=== PATIENT | male | born 1940 | race Caucasian/White ===

== ENCOUNTER 2017-05-14 17:19 | Observation (INO) | payer MEDICARE ==
[2017-05-14] MEDS ORDERED: RX INFO: IV CONTRAST WAS GIVEN 1 EACH MISC MISCELLANE PRN (18:35)
--- NOTE | 2017-05-14 18:38 | ED ---
General Adult HPI - General Chief complaint: Nausea/Vomiting/Diarrhea Stated complaint: abdominal pain Time Seen by Provider: 05/14/17 18:21 Source: patient, family Mode of arrival: ambulatory Limitations: no limitations - History of Present Illness Initial comments: Patient is a 76-year-old male with extensive past medical history most significant for prostate cancer for which he began oral chemotherapy yesterday as well as known coronary artery disease for which he underwent a stress echocardiogram yesterday. Patient presents to the ED today for evaluation of lower abdominal pain, nausea, vomiting and constipation. Patient states that yesterday during his stress test he did feel some pressure in his lower abdomen, he thought it was because something was laying on his abdomen. He reports his pain didn't disturb him too much and he did not report it to the facility at that time. She states that he was in his usual state of health after going home, he did take his evening meds which included a new prescription for an oral chemotherapeutic for prostate cancer. Patient reports that throughout the day today he has had a vague pressure in his lower abdomen, he did not have a bowel movement until 6 PM this evening which she reports is unusual for him. He does report that this afternoon around 12:30 PM he was feeling nauseated he had a small episode of nonbloody nonbilious emesis, he felt that if he could vomit he would feel better so he drank a cup of baking soda and water. He reports that he was able to vomit this back up but that only provided minimal relief. He reports that his pain is in the lower abdomen, it is a vague cramping in nature. It does not radiate. Patient reports he's never experienced anything like this before. Patient does have a history of prostate surgery in the past however no other abdominal surgeries. His most recent colonoscopy was 4 years ago and they identified a single polyp at which time they told him he no longer needed to follow up for colonoscopies. Patient denies fevers but reports he feels chilled at the emergency department. He denies chest pain or shortness of breath. He denies any dysuria or difficulty with urination. - Related Data Home Medications Medication Instructions Recorded Confirmed Cholecalciferol [Vitamin D3] 1,000 unit PO DAILY 04/16/16 05/14/17 Enzalutamide [Xtandi] 160 mg PO DIRECTED 04/16/16 05/14/17 Abiraterone Acetate [Zytiga] 1,000 mg PO DAILY@1600 05/14/17 05/14/17 Cyanocobalamin [Vitamin B-12] 500 mcg PO DAILY 05/14/17 05/14/17 Ferrous Sulfate [Feosol] 325 mg PO DAILY 05/14/17 05/14/17 Furosemide [Lasix] 40 mg PO HS 05/14/17 05/14/17 Potassium Chloride [Klor-Con 20] 20 meq PO DAILY 05/14/17 05/14/17 Rivaroxaban [Xarelto] 20 mg PO DAILY@1300 05/14/17 05/14/17 predniSONE 5 mg PO BID 05/14/17 05/14/17 Previous Rx's Medication Instructions Recorded Metoprolol Tartrate [Lopressor] 50 mg PO BID #180 tab 04/20/16 Allergies Allergy/AdvReac Type Severity Reaction Status Date / Time No Known Allergies Allergy Verified 05/14/17 19:18 Review of Systems ROS Statement: Those systems with pertinent positive or pertinent negative responses have been documented in the HPI. ROS Other: All systems not noted in ROS Statement are negative. Constitutional: Reports: chills. Denies: fever Eyes: Denies: vision change ENT: Denies: ear pain, throat pain, epistaxis Respiratory: Denies: cough, dyspnea Cardiovascular: Denies: chest pain, palpitations, dyspnea on exertion, edema Endocrine: Denies: fatigue, heat or cold intolerance Gastrointestinal: Reports: abdominal pain, nausea, vomiting, constipation (did not have a BM this morning, did have a large BM upon arrival to the ED). Denies : diarrhea Genitourinary: Denies: urgency, dysuria, frequency Musculoskeletal: Denies: back pain Skin: Denies: rash, lesions Neurological: Denies: headache, weakness Psychiatric: Denies: anxiety, depression Hematological/Lymphatic: Reports: easy bleeding, easy bruising (on xarelto) Past Medical History Past Medical History: Cancer, Hypertension, Osteoarthritis (OA), Pneumonia, Prostate Disorder Additional Past Medical History / Comment(s): PROSTATE CANCER 2005(HAD SX ANS RADIATION),upper PERMANENT BRIDGE, POLYPS-benign), UTI, STATED HAD PNE VACCINE APRROX 3-4 YEARS AGO. History of Any Multi-Drug Resistant Organisms: None Reported Additional Past Surgical History / Comment(s): PROSTATECTOMY,COLONOSCOPY, RT INGUINAL HERNIA,"BLOOD REMOVED FROM BEHIND RETINA-RT EYE", rt cataract. Past Anesthesia/Blood Transfusion Reactions: No Reported Reaction Past Psychological History: No Psychological Hx Reported Smoking Status: Former smoker Past Alcohol Use History: Rare Past Drug Use History: None Reported - Past Family History Father Family Medical History: Myocardial Infarction ([place]) Mother Family Medical History: Cancer Additional Family Medical History / Comment(s): uterin cancer- at age 86 General Exam Limitations: no limitations General appearance: alert, in no apparent distress Head exam: Present: atraumatic, normocephalic, normal inspection Eye exam: Present: normal appearance, PERRL, EOMI. Absent: scleral icterus, conjunctival injection, periorbital swelling ENT exam: Present: normal exam, mucous membranes moist Neck exam: Present: normal inspection. Absent: tenderness, meningismus, lymphadenopathy Respiratory exam: Present: normal lung sounds bilaterally. Absent: respiratory distress, wheezes, rales, rhonchi, stridor Cardiovascular Exam: Present: regular rate, normal rhythm, normal heart sounds. Absent: systolic murmur, diastolic murmur, rubs, gallop, clicks GI/Abdominal exam: Present: soft, normal bowel sounds. Absent: distended, guarding, rebound, rigid, diminished bowel sounds, hyperactive bowel sounds, hypoactive bowel sounds, organomegaly, mass, pulsatile mass Rectal exam: Present: deferred Extremities exam: Present: normal inspection. Absent: pedal edema Neurological exam: Present: alert, oriented X3, CN II-XII intact Psychiatric exam: Present: normal affect, normal mood Skin exam: Present: warm, dry, intact, normal color. Absent: rash Course Vital Signs 05/14/17 05/14/17 05/14/17 17:29 20:10 21:28 Temperature 96.5 F L 98.7 F Pulse Rate 87 82 87 Respiratory 22 18 16 Rate Blood Pressure 159/79 134/74 143/73 O2 Sat by Pulse 100 98 97 Oximetry - Reevaluation(s) Reevaluation #1: Patient's daughter pulled me aside outside of the room and expressed concern that her father has seemed "off lately" and is saying very off the wall things, she states they have discussed this with his PCP and oncologist. Daughter states this is why they have changed the patient's prostate cancer medication. She also states that he is currently being worked up for dementia. 05/14/17 19:23 Reevaluation #2: Labs and CT imaging were reviewed and discussed with the family and patient. Patient appears to have a left UVJ kidney stone with mild hydronephrosis urinalysis with no glucose site esterase or nitrites however full red and white blood cells as well as bacteria, culture was ordered, IV Rocephin was ordered. Bise the patient and the family that I plan to place the patient in the hospital overnight for evaluation by his urologist. 05/14/17 21:43 05/14/17 21:45 Medical Decision Making - Medical Decision Making Patient was seen and evaluated, history was obtained from the patient and his family at bedside History and physical exam concerning for left lower quadrant abdominal pain, patient is only mildly tender on evaluation it seems to be distractible History is complicated by a recent stress echocardiogram yesterday and initiation of new chemotherapeutic drug yesterday as well Labs and CT scans were ordered EKG with sinus rhythm, rate 75 normal intervals, noted to have occasional PAC. Labs were reviewed, significant for a mildly elevated lactic acid of 3.0 Computed tomography scan reveals a distal UVJ stone with hydronephrosis Urinalysis with no definitive urinary tract infection however there is significant but cells as well as bacteria noted, a urine culture was obtained IV Rocephin was ordered Given the patient's multiple medical comorbidities will plan to admit the patient for observation and further evaluation by his urologist Dr Akhtar Patient care was discussed with Dr. Gardner who accepts the patient to observation for possible UTI and UVJ stone with a consult to urology. Orders were placed - Lab Data Result diagrams: 05/14/17 19:20 05/14/17 19:20 Lab Results 05/14/17 05/14/17 05/14/17 Range/Units 19:20 19:20 19:20 WBC 8.4 (3.8-10.6) k/uL RBC 4.44 (4.30-5.90) m/uL Hgb 14.3 (13.0-17.5) gm/dL Hct 41.1 (39.0-53.0) % MCV 92.5 (80.0-100.0) fL MCH 32.2 (25.0-35.0) pg MCHC 34.8 (31.0-37.0) g/dL RDW 12.7 (11.5-15.5) % Plt Count 204 (150-450) k/uL Neutrophils % 90 % Lymphocytes % 5 % Monocytes % 5 % Eosinophils % 0 % Basophils % 0 % Neutrophils # 7.5 (1.3-7.7) k/uL Lymphocytes # 0.4 L (1.0-4.8) k/uL Monocytes # 0.4 (0-1.0) k/uL Eosinophils # 0.0 (0-0.7) k/uL Basophils # 0.0 (0-0.2) k/uL PT (9.0-12.0) sec INR (<1.2) APTT (22.0-30.0) sec Sodium 144 (137-145) mmol/L Potassium 3.8 (3.5-5.1) mmol/L Chloride 109 H (98-107) mmol/L Carbon Dioxide 23 (22-30) mmol/L Anion Gap 12 mmol/L BUN 28 H (9-20) mg/dL Creatinine 1.10 (0.66-1.25) mg/dL Est GFR (MDRD) Af Amer >60 (>60 ml/min/1.73 sqM) Est GFR (MDRD) Non-Af >60 (>60 ml/min/1.73 sqM) Glucose 160 H (74-99) mg/dL POC Glucose (mg/dL) (75-99) mg/dL POC Glu Weld Inspector ID Plasma Lactic Acid Barber 3.0 H* (0.7-2.0) mmol/L Calcium 9.3 (8.4-10.2) mg/dL Troponin I (0.000-0.034) ng/mL Urine Color Urine Appearance (Clear) Urine pH (5.0-8.0) Ur Specific [place] (1.001-1.035) Urine Protein (Negative) Urine Glucose (UA) (Negative) Urine Ketones (Negative) Urine Blood (Negative) Urine Nitrite (Negative) Urine Bilirubin (Negative) Urine Urobilinogen (<2.0) mg/dL Ur Leukocyte Esterase (Negative) Urine RBC (0-5) /hpf Urine WBC (0-5) /hpf Ur Squamous Epith Cells (0-4) /hpf Urine Bacteria (None) /hpf Urine Mucus (None) /hpf 05/14/17 05/14/17 05/14/17 Range/Units 19:20 19:20 19:20 WBC (3.8-10.6) k/uL RBC (4.30-5.90) m/uL Hgb (13.0-17.5) gm/dL Hct (39.0-53.0) % MCV (80.0-100.0) fL MCH (25.0-35.0) pg MCHC (31.0-37.0) g/dL RDW (11.5-15.5) % Plt Count (150-450) k/uL Neutrophils % % Lymphocytes % % Monocytes % % Eosinophils % % Basophils % % Neutrophils # (1.3-7.7) k/uL Lymphocytes # (1.0-4.8) k/uL Monocytes # (0-1.0) k/uL Eosinophils # (0-0.7) k/uL Basophils # (0-0.2) k/uL PT 10.6 (9.0-12.0) sec INR 1.0 (<1.2) APTT 21.8 L (22.0-30.0) sec Sodium (137-145) mmol/L Potassium (3.5-5.1) mmol/L Chloride (98-107) mmol/L Carbon Dioxide (22-30) mmol/L Anion Gap mmol/L BUN (9-20) mg/dL Creatinine (0.66-1.25) mg/dL Est GFR (MDRD) Af Amer (>60 ml/min/1.73 sqM) Est GFR (MDRD) Non-Af (>60 ml/min/1.73 sqM) Glucose (74-99) mg/dL POC Glucose (mg/dL) 151 H (75-99) mg/dL POC Glu Weld Inspector ID Alyssa Markham Plasma Lactic Acid Barber (0.7-2.0) mmol/L Calcium (8.4-10.2) mg/dL Troponin I <0.012 (0.000-0.034) ng/mL Urine Color Urine Appearance (Clear) Urine pH (5.0-8.0) Ur Specific [place] (1.001-1.035) Urine Protein (Negative) Urine Glucose (UA) (Negative) Urine Ketones (Negative) Urine Blood (Negative) Urine Nitrite (Negative) Urine Bilirubin (Negative) Urine Urobilinogen (<2.0) mg/dL Ur Leukocyte Esterase (Negative) Urine RBC (0-5) /hpf Urine WBC (0-5) /hpf Ur Squamous Epith Cells (0-4) /hpf Urine Bacteria (None) /hpf Urine Mucus (None) /hpf 05/14/17 Range/Units 19:20 WBC (3.8-10.6) k/uL RBC (4.30-5.90) m/uL Hgb (13.0-17.5) gm/dL Hct (39.0-53.0) % MCV (80.0-100.0) fL MCH (25.0-35.0) pg MCHC (31.0-37.0) g/dL RDW (11.5-15.5) % Plt Count (150-450) k/uL Neutrophils % % Lymphocytes % % Monocytes % % Eosinophils % % Basophils % % Neutrophils # (1.3-7.7) k/uL Lymphocytes # (1.0-4.8) k/uL Monocytes # (0-1.0) k/uL Eosinophils # (0-0.7) k/uL Basophils # (0-0.2) k/uL PT (9.0-12.0) sec INR (<1.2) APTT (22.0-30.0) sec Sodium (137-145) mmol/L Potassium (3.5-5.1) mmol/L Chloride (98-107) mmol/L Carbon Dioxide (22-30) mmol/L Anion Gap mmol/L BUN (9-20) mg/dL Creatinine (0.66-1.25) mg/dL Est GFR (MDRD) Af Amer (>60 ml/min/1.73 sqM) Est GFR (MDRD) Non-Af (>60 ml/min/1.73 sqM) Glucose (74-99) mg/dL POC Glucose (mg/dL) (75-99) mg/dL POC Glu Weld Inspector ID Plasma Lactic Acid Barber (0.7-2.0) mmol/L Calcium (8.4-10.2) mg/dL Troponin I (0.000-0.034) ng/mL Urine Color Light Red Urine Appearance Cloudy (Clear) Urine pH 6.5 (5.0-8.0) Ur Specific [place] 1.021 (1.001-1.035) Urine Protein 1+ H (Negative) Urine Glucose (UA) Negative (Negative) Urine Ketones 1+ H (Negative) Urine Blood Large H (Negative) Urine Nitrite Negative (Negative) Urine Bilirubin Negative (Negative) Urine Urobilinogen <2.0 (<2.0) mg/dL Ur Leukocyte Esterase Negative (Negative) Urine RBC >182 H (0-5) /hpf Urine WBC 31 H (0-5) /hpf Ur Squamous Epith Cells 1 (0-4) /hpf Urine Bacteria Occasional H (None) /hpf Urine Mucus Moderate H (None) /hpf Disposition Clinical Impression: Nephrolithiasis, Hydronephrosis, Lactic acid acidosis, UTI (urinary tract infection) Disposition: ADMITTED IP TO THIS [facility] Condition: Good Referrals: Annamaria Jimenez MD [Primary Care Provider] - 1-2 days Time of Disposition: 22:06
[2017-05-14 19:24] LABS: Glucose,Whole Blood 151 mg/dL (75-99)
[2017-05-14 19:52] LABS: Basophils % (A) 0 %; CH 32.3; Eosinophils % (A) 0 %; HCT 41.1 % (39.0-53.0); HDW 2.68; HGB 14.3 gm/dL (13.0-17.5); Luc # (Auto) 0.04; Luc % (Auto) 1; Lymphocytes # (A) 0.4 k/uL (1.0-4.8); Lymphocytes % (A) 5 %; MCH 32.2 pg (25.0-35.0); MCHC 34.8 g/dL (31.0-37.0); MCV 92.5 fL (80.0-100.0); Mean Platelet Volume 6.8; Monocytes # (A) 0.4 k/uL (0-1.0); Monocytes % (A) 5 %; Neutrophils # (A) 7.5 k/uL (1.3-7.7); Neutrophils % (A) 90 %; RBC 4.44 m/uL (4.30-5.90); RDW 12.7 % (11.5-15.5); WBC 8.4 k/uL (3.8-10.6); WBC (Perox) 8.29
[2017-05-14 19:59] LABS: Appearance,Urine Cloudy (Clear); Bacteria,Urine Occasional /hpf; Bilirubin,Urine Negative (Negative); Glucose,Urine (UA) Negative (Negative); Ketones,Urine 1+ (Negative); Leukocyte Esterase,Urine Negative (Negative); Mucus,Urine Moderate /hpf; Nitrite,Urine Negative (Negative); PH, Urine 6.5 (5.0-8.0); Particle Count 9736; Protein,Urine 1+ (Negative); RBC,Urine >182 /hpf (0-5); Specific Gravity,Urine 1.021 (1.001-1.035); Squamous Epithelial Cell,Urine 1 /hpf (0-4); UA Billing (MACRO vs. MICRO) MICRO; Urobilinogen,Urine <2.0 mg/dL (<2.0); WBC,Urine 31 /hpf (0-5)
[2017-05-14 20:08] LABS: Anion Gap 12 mmol/L; Blood Urea Nitrogen 28 mg/dL (9-20); Calcium 9.3 mg/dL (8.4-10.2); Carbon Dioxide 23 mmol/L (22-30); Chloride 109 mmol/L (98-107); Glucose 160 mg/dL (74-99); Non-African American GFR(MDRD) >60 (>60 ml/min/1.73 sqM); Potassium 3.8 mmol/L (3.5-5.1); Sodium 144 mmol/L (137-145)
[2017-05-14 20:14] LABS: Prothrombin Time 10.6 sec (9.0-12.0)
[2017-05-14 20:17] LABS: Partial Thromboplastin Time 21.8 sec (22.0-30.0)
[2017-05-14] MEDS ORDERED: SODIUM CHLORIDE 0.9% 1,000 ML IV ONE (20:30)
--- NOTE | 2017-05-14 21:15 | CT ---
EXAMINATION TYPE: CT abdomen pelvis w con DATE OF EXAM: 05/14/2017 COMPARISON: HISTORY: Abdominal pain CT DLP: mGycm Automated exposure control for dose reduction was used. TECHNIQUE: Helical acquisition of images was performed from the lung bases through the pelvis. CONTRAST: Omnipaque 100 mL. FINDINGS: There is mild subsegmental atelectasis at the lung bases. Liver spleen appear normal. There is a small calcified gallstone. Bile ducts are not dilated. There is mild left-sided hydronephrosis and hydroureter. There is probably a small stone in the dista l left ureter at the bladder. There is a 4 mm calcification in the posterior left kidney. There is a 1 cm cortical cyst on the lower pole left kidney. There is a 2 cm cortical cyst on the lower pole rig ht kidney. There is a 4 cm rounded mass involving the right adrenal gland. This has intermediate dens ity. There is probably some peripheral enhancement. There is no retroperitoneal adenopathy. There is no ascites. Bladder distends smoothly. I see no pelv ic mass. There is no intestinal wall thickening. There are no dilated loops. There are surgical clips in the pelvis. I see no bony destructive process. There is narrowing of L4-5 disc space. IMPRESSION: THERE IS MILD LEFT-SIDED HYDRONEPHROSIS AND HYDROURETER. HYDROURETER IS NEW COMPARED TO OLD EXAM AND I SUSPECT A SMALL OBSTRUCTING CALCULUS AT THE LEFT URETEROVESICAL JUNCTION. SMALL LEFT RENAL CALCULUS . RENAL CORTICAL CYSTS. SMALL CALCIFIED GALLSTONE. 4 CM RIGHT ADRENAL MASS IS NOT SIGNIFICANTLY DIFFERENT THAN OLD EXAM AND SUGGESTS A BENIGN ETIOLOGY.
[2017-05-14] MEDS ORDERED: ACETAMINOPHEN TAB 325 MG TAB PO PRN (22:00)
[2017-05-14] MEDS ORDERED: KETOROLAC 30 MG/ML 1 ML VIAL IVP PRN (22:00)
[2017-05-14] MEDS ORDERED: MORPHINE SULFATE 4 MG/ML SYRINGE IV PRN (22:00)
[2017-05-14] MEDS ORDERED: NALOXONE 0.4 MG/ML 1 ML VIAL IV PRN (22:00)
[2017-05-14] MEDS ORDERED: SODIUM CHLORIDE 0.9% 1,000 ML IV SCH (22:00)
[2017-05-14] MEDS ORDERED: HYDROcodone/APAP 5-325MG 1 EACH TAB PO PRN (22:00)
[2017-05-15 08:57] VITALS: RESP 16
--- NOTE | 2017-05-15 11:28 | P.GSCN ---
History of Present Illness Consult date: 05/15/17 Reason for Consult: Left ureteral calculus History of present illness: The patient developed left lower abdominal pain and nausea yesterday afternoon. He had an episode of self-induced nausea but says that he continued to have discomfort. The pain was associated with the urge to have a bowel movement but he had no urinary frequency, urgency or hematuria. His pain worsened and he presented to the emergency room late in the afternoon where he was evaluated and noted to have microscopic hematuria. Computed tomography scan of the abdomen and pelvis identified a 2 mm distal left ureteral calculus which appeared to be located at the ureteral meatus. There was no significant hydronephrosis. The patient was admitted to the hospitalist and started on ceftriaxone. He says that he has actually had no pain since he was in the emergency room late in the evening. He has not been straining his urine and is unaware if he has passed the stone. He has no previous history of urolithiasis , urinary tract infection or gross hematuria. The patient has a history of prostate cancer and has been followed by Dr. Akhtar. He underwent radical prostatectomy in 1994 which was eventually followed by adjuvant radiation therapy due to a rising PSA. He apparently developed a PSA recurrence which was initially treated with bicalutamide and then Lupron. He was started on Xtandi in 09/2015 and apparently had an initial fall in his PSA but the PSA began rising this year. He was recently seen and was going to be switched to Zytega starting yesterday but he has not yet begun this medication. He is scheduled to see Dr Akhtar in 2 weeks. Review of Systems - Constitutional Denies chills, Denies fever - Cardiovascular Denies chest pain, Denies palpitations - Respiratory Denies cough, Denies wheezing - Gastrointestinal Denies abdominal pain, Denies nausea - Genitourinary Denies dysuria, Denies hematuria, Denies urinary frequency Past Medical History Past Medical History: Atrial Fibrillation, Cancer (Prostate cancer-castrate resistant), Hypertension, Osteoarthritis (OA), Pneumonia, Prostate Disorder Additional Past Medical History / Comment(s): PROSTATE CANCER 2005(HAD SX ANS RADIATION),upper PERMANENT BRIDGE, POLYPS-benign), UTI, STATED HAD PNE VACCINE APRROX 3-4 YEARS AGO. History of Any Multi-Drug Resistant Organisms: None Reported Additional Past Surgical History / Comment(s): PROSTATECTOMY,COLONOSCOPY, RT INGUINAL HERNIA,"BLOOD REMOVED FROM BEHIND RETINA-RT EYE", rt cataract. Past Anesthesia/Blood Transfusion Reactions: No Reported Reaction Past Psychological History: No Psychological Hx Reported Smoking Status: Former smoker Past Alcohol Use History: Rare Additional Past Alcohol Use History / Comment(s): smoked off and on x 20 years, quit in the Past Drug Use History: None Reported - Past Family History Father Family Medical History: Myocardial Infarction ([place]) Mother Family Medical History: Cancer Additional Family Medical History / Comment(s): uterin cancer- at age 86 Medications and Allergies Home Medications Medication Instructions Recorded Confirmed Type Cholecalciferol [Vitamin D3] 1,000 unit PO DAILY 04/16/16 05/14/17 History Abiraterone Acetate [Zytiga] 1,000 mg PO DAILY@1600 05/14/17 05/14/17 History Cyanocobalamin [Vitamin B-12] 500 mcg PO DAILY 05/14/17 05/14/17 History Ferrous Sulfate [Feosol] 325 mg PO DAILY 05/14/17 05/14/17 History Furosemide [Lasix] 40 mg PO HS 05/14/17 05/14/17 History Potassium Chloride [Klor-Con 20] 20 meq PO DAILY 05/14/17 05/14/17 History Rivaroxaban [Xarelto] 20 mg PO DAILY@1300 05/14/17 05/14/17 History predniSONE 5 mg PO BID 05/14/17 05/14/17 History Allergies Allergy/AdvReac Type Severity Reaction Status Date / Time No Known Allergies Allergy Verified 05/14/17 23:07 Surgical - Exam Vital Signs Temp Pulse Resp BP Pulse Ox 96.5 F L 87 22 159/79 100 05/14/17 17:29 05/14/17 17:29 05/14/17 17:29 05/14/17 17:29 05/14/17 17:29 - General well developed, no distress, no pain - Respiratory normal respiratory effort - Abdomen Abdomen: soft, non tender, no organomegaly - Genitourinary normal penis with no external lesions, testicles present, testicles non-tender - Psychiatric oriented to time, speech is normal, memory intact Results - Labs 05/14/17 19:20 05/14/17 19:20 Abnormal Lab Results - Last 24 Hours (Table) 05/14/17 05/14/17 05/14/17 Range/Units 19:20 19:20 19:20 Lymphocytes # 0.4 L (1.0-4.8) k/uL APTT (22.0-30.0) sec Chloride 109 H (98-107) mmol/L BUN 28 H (9-20) mg/dL Glucose 160 H (74-99) mg/dL POC Glucose (mg/dL) (75-99) mg/dL Plasma Lactic Acid Barber 3.0 H* (0.7-2.0) mmol/L Urine Protein (Negative) Urine Ketones (Negative) Urine Blood (Negative) Urine RBC (0-5) /hpf Urine WBC (0-5) /hpf Urine Bacteria (None) /hpf Urine Mucus (None) /hpf 05/14/17 05/14/17 05/14/17 Range/Units 19:20 19:20 19:20 Lymphocytes # (1.0-4.8) k/uL APTT 21.8 L (22.0-30.0) sec Chloride (98-107) mmol/L BUN (9-20) mg/dL Glucose (74-99) mg/dL POC Glucose (mg/dL) 151 H (75-99) mg/dL Plasma Lactic Acid Barber (0.7-2.0) mmol/L Urine Protein 1+ H (Negative) Urine Ketones 1+ H (Negative) Urine Blood Large H (Negative) Urine RBC >182 H (0-5) /hpf Urine WBC 31 H (0-5) /hpf Urine Bacteria Occasional H (None) /hpf Urine Mucus Moderate H (None) /hpf Microbiology - Last 24 Hours (Table) 05/14/17 21:39 Urine Culture - Preliminary Urine,Voided Diabetes panel 05/14/17 Range/Units 19:20 Sodium 144 (137-145) mmol/L Potassium 3.8 (3.5-5.1) mmol/L Chloride 109 H (98-107) mmol/L Carbon Dioxide 23 (22-30) mmol/L BUN 28 H (9-20) mg/dL Creatinine 1.10 (0.66-1.25) mg/dL Glucose 160 H (74-99) mg/dL Calcium 9.3 (8.4-10.2) mg/dL Calcium panel 05/14/17 Range/Units 19:20 Calcium 9.3 (8.4-10.2) mg/dL Pituitary panel 05/14/17 Range/Units 19:20 Sodium 144 (137-145) mmol/L Potassium 3.8 (3.5-5.1) mmol/L Chloride 109 H (98-107) mmol/L Carbon Dioxide 23 (22-30) mmol/L BUN 28 H (9-20) mg/dL Creatinine 1.10 (0.66-1.25) mg/dL Glucose 160 H (74-99) mg/dL Calcium 9.3 (8.4-10.2) mg/dL Adrenal panel 05/14/17 Range/Units 19:20 Sodium 144 (137-145) mmol/L Potassium 3.8 (3.5-5.1) mmol/L Chloride 109 H (98-107) mmol/L Carbon Dioxide 23 (22-30) mmol/L BUN 28 H (9-20) mg/dL Creatinine 1.10 (0.66-1.25) mg/dL Glucose 160 H (74-99) mg/dL Calcium 9.3 (8.4-10.2) mg/dL Assessment and Plan (1) Ureteral calculus, left Narrative/Plan: I personally reviewed the patient's computed tomography scan. He had a 2 mm calculus at the left ureteral meatus with minimal hydronephrosis. He has had no pain since late yesterday evening and it is likely the he has already passed the stone. He has no evidence of urinary tract infection and there is no need to continue him on antibiotics. He has no previous history of urolithiasis and no other calculi were noted in the kidneys. He has a history of castrate resistant prostate cancer and should follow up with Dr. Akhtar as scheduled in 2 weeks. Status: Acute
[2017-05-15 15:50] VITALS: BP 119/80; PULSE 69; TEMP 98.2
--- NOTE | 2017-05-15 16:06 | P.HPIM ---
History of Present Illness H&P Date: 05/15/17 Patient is a 76-year-old male with extensive past medical history most significant for prostate cancer for which he began oral chemotherapy yesterday as well as known coronary artery disease for which he underwent a stress echocardiogram yesterday. Patient presents to the ED today for evaluation of lower abdominal pain, nausea, vomiting and constipation. Patient states that yesterday during his stress test he did feel some pressure in his lower abdomen, he thought it was because something was laying on his abdomen. He reports his pain didn't disturb him too much and he did not report it to the facility at that time. Patient took his evening medications which included a new prescription for an oral chemotherapeutic for prostate cancer. Patient reports that throughout the day today he has had a vague pressure in his lower abdomen, he did not have a bowel movement until 6 PM this evening which she reports is unusual for him. He does report that this afternoon around 12:30 PM he was feeling nauseated he had a small episode vomiting. He reports that his pain is in the lower abdomen, it is a vague cramping in nature. It does not radiate. Patient reports he's never experienced anything like this before. Patient does have a history of prostate surgery in the past however no other abdominal surgeries. His most recent colonoscopy was 4 years ago and they identified a single polyp at which time they told him he no longer needed to follow up for colonoscopies. Patient denies fevers but reports he feels chilled at the emergency department. He denies chest pain or shortness of breath. He denies any dysuria or difficulty with urination. Past Medical History Past Medical History: Atrial Fibrillation, Cancer (Prostate cancer-castrate resistant), Hypertension, Osteoarthritis (OA), Pneumonia, Prostate Disorder Additional Past Medical History / Comment(s): PROSTATE CANCER 2005(HAD SX ANS RADIATION),upper PERMANENT BRIDGE, POLYPS-benign), UTI, STATED HAD PNE VACCINE APRROX 3-4 YEARS AGO. History of Any Multi-Drug Resistant Organisms: None Reported Additional Past Surgical History / Comment(s): PROSTATECTOMY,COLONOSCOPY, RT INGUINAL HERNIA,"BLOOD REMOVED FROM BEHIND RETINA-RT EYE", rt cataract. Past Anesthesia/Blood Transfusion Reactions: No Reported Reaction Past Psychological History: No Psychological Hx Reported Smoking Status: Former smoker Past Alcohol Use History: Rare Additional Past Alcohol Use History / Comment(s): smoked off and on x 20 years, quit in the Past Drug Use History: None Reported - Past Family History Father Family Medical History: Myocardial Infarction ([place]) Mother Family Medical History: Cancer Additional Family Medical History / Comment(s): uterin cancer- at age 86 Medications and Allergies Home Medications Medication Instructions Recorded Confirmed Type Cholecalciferol [Vitamin D3] 1,000 unit PO DAILY 04/16/16 05/14/17 History Abiraterone Acetate [Zytiga] 1,000 mg PO DAILY@1600 05/14/17 05/14/17 History Cyanocobalamin [Vitamin B-12] 500 mcg PO DAILY 05/14/17 05/14/17 History Ferrous Sulfate [Feosol] 325 mg PO DAILY 05/14/17 05/14/17 History Furosemide [Lasix] 40 mg PO HS 05/14/17 05/14/17 History Potassium Chloride [Klor-Con 20] 20 meq PO DAILY 05/14/17 05/14/17 History Rivaroxaban [Xarelto] 20 mg PO DAILY@1300 05/14/17 05/14/17 History predniSONE 5 mg PO BID 05/14/17 05/14/17 History Allergies Allergy/AdvReac Type Severity Reaction Status Date / Time No Known Allergies Allergy Verified 05/14/17 23:07 Physical Exam Vitals: Vital Signs Temp Pulse Pulse Resp BP BP Pulse Ox 05/15/17 15:49 98.2 F 69 16 119/80 96 05/15/17 08:00 98.3 F 70 16 119/75 97 05/15/17 04:00 98.4 F 63 18 151/76 99 05/15/17 03:31 18 05/14/17 23:11 18 05/14/17 22:56 98.3 F 84 18 139/76 99 05/14/17 22:36 98.4 F 86 16 136/68 99 05/14/17 21:28 98.7 F 87 16 143/73 97 05/14/17 20:10 82 18 134/74 98 05/14/17 19:30 87 18 136/84 99 05/14/17 18:30 80 16 132/78 99 05/14/17 17:29 96.5 F L 87 22 159/79 100 Intake and Output 05/15/17 05/15/17 05/15/17 06:59 14:59 22:59 Intake Total 700 716 Balance 700 716 Intake: IV 500 480 Sodium Chloride 0.9% 1, 500 480 000 ml @ 75 mls/hr IV . [id number] ROBERT Rx#:[id number] Oral 200 236 Other: Voiding Method Toilet Toilet # Voids 3 2 In general patient is alert and oriented 3 in no apparent distress HEENT head normocephalic and atraumatic Neck is supple no JVD no goiter no lymphadenopathy Chest exam reveals a few scattered crackles no wheezing Cardiac exam reveals regular heart sounds S1 and S2 no gallops no murmurs Abdomen is soft nontender no organomegaly with normal bowel sounds Extremity exam reveals no edema no cyanosis or clubbing Results CBC & Chem 7: 05/14/17 19:20 05/14/17 19:20 Labs: Abnormal Lab Results - Last 24 Hours (Table) 05/14/17 05/14/17 05/14/17 Range/Units 19:20 19:20 19:20 Lymphocytes # 0.4 L (1.0-4.8) k/uL APTT (22.0-30.0) sec Chloride 109 H (98-107) mmol/L BUN 28 H (9-20) mg/dL Glucose 160 H (74-99) mg/dL POC Glucose (mg/dL) (75-99) mg/dL Plasma Lactic Acid Barber 3.0 H* (0.7-2.0) mmol/L Urine Protein (Negative) Urine Ketones (Negative) Urine Blood (Negative) Urine RBC (0-5) /hpf Urine WBC (0-5) /hpf Urine Bacteria (None) /hpf Urine Mucus (None) /hpf 05/14/17 05/14/17 05/14/17 Range/Units 19:20 19:20 19:20 Lymphocytes # (1.0-4.8) k/uL APTT 21.8 L (22.0-30.0) sec Chloride (98-107) mmol/L BUN (9-20) mg/dL Glucose (74-99) mg/dL POC Glucose (mg/dL) 151 H (75-99) mg/dL Plasma Lactic Acid Barber (0.7-2.0) mmol/L Urine Protein 1+ H (Negative) Urine Ketones 1+ H (Negative) Urine Blood Large H (Negative) Urine RBC >182 H (0-5) /hpf Urine WBC 31 H (0-5) /hpf Urine Bacteria Occasional H (None) /hpf Urine Mucus Moderate H (None) /hpf Microbiology - Last 24 Hours (Table) 05/14/17 21:39 Urine Culture - Preliminary Urine,Voided Thrombosis Risk Factor Assmnt - Choose All That Apply Any of the Below Risk Factors Present?: Yes Each Factor Represents 1 point: Obesity (BMI >25), Swollen legs (current) Other Risk Factors: Yes Each Risk Factor Represents 2 Points: Age 61-74 years Other congenital or acquired thrombophilia - If yes, enter type in comment: No Thrombosis Risk Factor Assessment Total Risk Factor Score: 4 Thrombosis Risk Factor Assessment Level: Moderate Risk Assessment and Plan Plan: #1 abdominal pain with nausea and vomiting #2 evidence of 2 mm kidney stone on computed tomography scan #3 underlying history of prostate cancer recently started on new prescription for oral chemotherapy for prostate cancer #4 underlying history of coronary artery disease At this time patient is admitted for 24-hour observation urology consultation was requested in that regard to kidney stone and abdominal pain Will follow closely for medical management.
--- NOTE | 2017-05-15 16:11 | P.DS ---
Providers Date of admission: 05/14/17 22:00 Expected date of discharge: 05/15/17 Attending physician: Migdalia Gardner Consults: 05/14/17 22:02 Consult Physician Routine Consulting Provider: Robert Akhtar Consult Reason/Comments: left UVJ stone, hydro Do you want consulting provider notified?: Yes, Notify in am Primary care physician: Annamaria Jimenez Hospital Course: Diagnoses on discharge: #1 abdominal pain with nausea and vomiting #2 evidence of 2 mm kidney stone on computed tomography scan #3 underlying history of prostate cancer recently started on new prescription for oral chemotherapy for prostate cancer #4 underlying history of coronary artery disease Hospital course: Patient is a 76-year-old male with extensive past medical history most significant for prostate cancer for which he began oral chemotherapy yesterday as well as known coronary artery disease for which he underwent a stress echocardiogram yesterday. Patient presents to the ED today for evaluation of lower abdominal pain, nausea, vomiting and constipation. Patient states that yesterday during his stress test he did feel some pressure in his lower abdomen, he thought it was because something was laying on his abdomen. He reports his pain didn't disturb him too much and he did not report it to the facility at that time. Patient took his evening medications which included a new prescription for an oral chemotherapeutic for prostate cancer. Patient reports that throughout the day today he has had a vague pressure in his lower abdomen, he did not have a bowel movement until 6 PM this evening which she reports is unusual for him. He does report that this afternoon around 12:30 PM he was feeling nauseated he had a small episode vomiting. He reports that his pain is in the lower abdomen, it is a vague cramping in nature. It does not radiate. Patient reports he's never experienced anything like this before. Patient does have a history of prostate surgery in the past however no other abdominal surgeries. His most recent colonoscopy was 4 years ago and they identified a single polyp at which time they told him he no longer needed to follow up for colonoscopies. Patient denies fevers but reports he feels chilled at the emergency department. He denies chest pain or shortness of breath. He denies any dysuria or difficulty with urination. Patient pain resolved upon presentation to the floor he did not have any further recurrence of his abdominal pain Was evaluated by Dr. Garcia urologist, no intervention was recommended at this time there was no evidence of urinary tract infection, patient had evidence of a 2 mm urethral stone without significant hydronephrosis, no intervention was recommended. Patient was stable and pain free he was discharged home on 05/15/2017 He will follow-up with his primary care physician Dr. phan within 1 week he will also follow with Dr. Akhtar his urologist in the next 2 weeks Patient Condition at Discharge: Good Plan - Discharge Summary New Discharge Prescriptions: Continue Cholecalciferol [Vitamin D3] 1,000 unit PO DAILY Metoprolol Tartrate [Lopressor] 50 mg PO BID #180 tab Cyanocobalamin [Vitamin B-12] 500 mcg PO DAILY predniSONE 5 mg PO BID Furosemide [Lasix] 40 mg PO HS Ferrous Sulfate [Iron (65 MG Elemental)] 325 mg PO DAILY Abiraterone Acetate [Zytiga] 1,000 mg PO DAILY@1600 Potassium Chloride [Klor-Con 20] 20 meq PO DAILY Rivaroxaban [Xarelto] 20 mg PO DAILY@1300 Discharge Medication List Cholecalciferol [Vitamin D3] 1,000 unit PO DAILY 04/16/16 [History] Metoprolol Tartrate [Lopressor] 50 mg PO BID #180 tab 04/20/16 [Rx] Abiraterone Acetate [Zytiga] 1,000 mg PO DAILY@1600 05/14/17 [History] Cyanocobalamin [Vitamin B-12] 500 mcg PO DAILY 05/14/17 [History] Ferrous Sulfate [Iron (65 MG Elemental)] 325 mg PO DAILY 05/14/17 [History] Furosemide [Lasix] 40 mg PO HS 05/14/17 [History] Potassium Chloride [Klor-Con 20] 20 meq PO DAILY 05/14/17 [History] Rivaroxaban [Xarelto] 20 mg PO DAILY@1300 05/14/17 [History] predniSONE 5 mg PO BID 05/14/17 [History] Follow up Appointment(s)/Referral(s): Annamaria Jimenez MD [Primary Care Provider] - 1-2 days
== END 2017-05-15 16:30 | disposition home or self-care (01) ==
LOC: EC 17:19 → 3OBS 22:00
PROVIDERS: ADMIT Internal Medicine; ATTEND Internal Medicine
DX: N13.2 Hydronephrosis with renal and ureteral calculous obstruction (principal); C61 Malignant neoplasm of prostate; I25.10 Atherosclerotic heart disease of native coronary artery without angina pectoris; I10 Essential (primary) hypertension; Z79.01 Long term (current) use of anticoagulants; Z79.899 Other long term (current) drug therapy; Z79.52 Long term (current) use of systemic steroids; Z87.891 Personal history of nicotine dependence; Z85.46 Personal history of malignant neoplasm of prostate; I48.91 Unspecified atrial fibrillation; Z92.3 Personal history of irradiation
CPT/HCPCS: 96361 ×4; 96365; 99285; 36415; 93005; 80048; 83605 ×2; 84484; 85025; 85610; 85730; 81001; 87086; 74177; G0378 ×2; J0696; Q9967

== ENCOUNTER 2017-07-17 19:43 | Inpatient (IN) | payer MEDICARE ==
[2017-07-17] MEDS ORDERED: SODIUM CHLORIDE 0.9% 1,000 ML IV STA (19:57)
--- NOTE | 2017-07-17 20:12 | ED ---
General Adult HPI - General Stated complaint: Altered Mental Status Time Seen by Provider: 07/17/17 19:46 Source: patient, family, RN notes reviewed - History of Present Illness Initial comments: 76-year-old male transferred from [facility] for evaluation of altered mental status, aggression agitation and hallucinations. According to the patient's family member he has been hallucinating over the past week. Today he became quite agitated. He was aggressive towards his daughter. Patient is alert and oriented, he has no complaints. Denies current hallucinations. According to EMS during transport the patient was hallucinating throughout. There was no workup performed prior to transfer. Patient's primary care physician wanted the patient evaluated at this hospital. According to the patient's daughter he does have possible early dementia although no formal diagnosis has been made. - Related Data Home Medications Medication Instructions Recorded Confirmed Cholecalciferol [Vitamin D3] 2,000 unit PO DAILY 04/16/16 07/17/17 Ferrous Sulfate [Iron (65 MG 325 mg PO DAILY 05/14/17 07/17/17 Elemental)] Furosemide [Lasix] 40 mg PO DAILY 05/14/17 07/17/17 Potassium Chloride [Klor-Con 20] 20 meq PO DAILY 05/14/17 07/17/17 Rivaroxaban [Xarelto] 20 mg PO W/SUPPER 05/14/17 07/17/17 predniSONE 5 mg PO BID 05/14/17 07/17/17 Abiraterone Acetate [Zytiga] 1,000 mg PO DAILY 07/17/17 07/17/17 Calcium Carbonate [Calcium] 600 mg PO DAILY 07/17/17 07/17/17 Denosumab [Prolia] 1 dose INJ Q180D 07/17/17 07/17/17 Isosorbide Mononitrate ER [Imdur] 15 mg PO DAILY 07/17/17 07/17/17 Lisinopril [Zestril] 10 mg PO DAILY 07/17/17 07/17/17 Lupron Injection 1 dose INJ Q180D 07/17/17 07/17/17 Nitroglycerin Sl Tabs [Nitrostat] 0.4 mg SUBLINGUAL Q5M PRN 07/17/17 07/17/17 Polyethylene Glycol 3350 [Miralax] 17 gm PO DAILY 10/14/17 10/14/17 Previous Rx's Medication Instructions Recorded Metoprolol Tartrate [Lopressor] 50 mg PO BID #180 tab 04/20/16 Allergies Allergy/AdvReac Type Severity Reaction Status Date / Time No Known Allergies Allergy Verified 07/17/17 19:53 Review of Systems ROS Statement: Those systems with pertinent positive or pertinent negative responses have been documented in the HPI. ROS Other: All systems not noted in ROS Statement are negative. Past Medical History Past Medical History: Atrial Fibrillation, Cancer (Prostate cancer-castrate resistant), Hypertension, Osteoarthritis (OA), Pneumonia, Prostate Disorder Additional Past Medical History / Comment(s): PROSTATE CANCER 2005(HAD SX ANS RADIATION),upper PERMANENT BRIDGE, POLYPS-benign), UTI, STATED HAD PNE VACCINE APRROX 3-4 YEARS AGO. History of Any Multi-Drug Resistant Organisms: None Reported Additional Past Surgical History / Comment(s): PROSTATECTOMY,COLONOSCOPY, RT INGUINAL HERNIA,"BLOOD REMOVED FROM BEHIND RETINA-RT EYE", rt cataract. Past Anesthesia/Blood Transfusion Reactions: No Reported Reaction Past Psychological History: No Psychological Hx Reported Smoking Status: Former smoker Past Alcohol Use History: Rare Additional Past Alcohol Use History / Comment(s): smoked off and on x 20 years, quit in the Past Drug Use History: None Reported - Past Family History Father Family Medical History: Myocardial Infarction ([place]) Mother Family Medical History: Cancer Additional Family Medical History / Comment(s): uterin cancer- at age 86 General Exam General appearance: alert, in no apparent distress Head exam: Present: atraumatic, normocephalic Eye exam: Present: normal appearance, PERRL, EOMI ENT exam: Present: mucous membranes dry Neck exam: Present: normal inspection. Absent: tenderness, meningismus Respiratory exam: Present: normal lung sounds bilaterally. Absent: respiratory distress Cardiovascular Exam: Present: regular rate, normal rhythm GI/Abdominal exam: Present: soft. Absent: distended, tenderness Extremities exam: Present: normal inspection, normal capillary refill. Absent: pedal edema Back exam: Present: normal inspection, full ROM Neurological exam: Present: alert, oriented X3. Absent: motor sensory deficit Psychiatric exam: Present: normal affect, normal mood Skin exam: Present: warm, dry, intact. Absent: cyanosis, diaphoretic Course Vital Signs 07/17/17 07/17/17 07/17/17 20:00 20:08 21:52 Temperature 97.8 F 97.5 F L Pulse Rate 64 67 63 Respiratory 18 18 18 Rate Blood Pressure 149/72 151/72 121/70 O2 Sat by Pulse 98 99 98 Oximetry 07/17/17 22:48 Temperature 98.3 F Pulse Rate 62 Respiratory 17 Rate Blood Pressure 156/83 O2 Sat by Pulse 99 Oximetry EKG Findings - EKG Comments: EKG Findings:: EKG shows normal sinus rhythm, ventricular rate 65, P arrival 144 , QRS duration 86, QTC [address] segment elevation or depression Medical Decision Making - Medical Decision Making 76-year-old male presenting for evaluation of agitation, aggression, progressive dementia and hallucinations. Patient's workup including head CT is unremarkable, no laboratory abnormalities, ammonia nondetectable, no signs of urinary tract infection. Chest x-ray does show right-sided atelectasis first early pneumonia. This does not fit the patient's presentation, however he will be given a dose antibiotics for community acquired pneumonia as this may be an early finding. Case is discussed with Dr. Riley, who accepts the admission. - Lab Data Result diagrams: 07/17/17 20:40 07/17/17 20:40 Lab Results 07/17/17 07/17/17 07/17/17 Range/Units 20:40 20:40 20:40 WBC (3.8-10.6) k/uL RBC (4.30-5.90) m/uL Hgb (13.0-17.5) gm/dL Hct (39.0-53.0) % MCV (80.0-100.0) fL MCH (25.0-35.0) pg MCHC (31.0-37.0) g/dL RDW (11.5-15.5) % Plt Count (150-450) k/uL Neutrophils % % Lymphocytes % % Monocytes % % Eosinophils % % Basophils % % Neutrophils # (1.3-7.7) k/uL Lymphocytes # (1.0-4.8) k/uL Monocytes # (0-1.0) k/uL Eosinophils # (0-0.7) k/uL Basophils # (0-0.2) k/uL PT (9.0-12.0) sec INR (<1.2) APTT (22.0-30.0) sec VBG pH (7.31-7.41) VBG pCO2 (37-51) mmHg VBG HCO3 (24-28) mmol/L Sodium 143 (137-145) mmol/L Potassium 3.6 (3.5-5.1) mmol/L Chloride 109 H (98-107) mmol/L Carbon Dioxide 24 (22-30) mmol/L Anion Gap 10 mmol/L BUN 23 H (9-20) mg/dL Creatinine 0.90 (0.66-1.25) mg/dL Est GFR (MDRD) Af Amer >60 (>60 ml/min/1.73 sqM) Est GFR (MDRD) Non-Af >60 (>60 ml/min/1.73 sqM) Glucose 108 H (74-99) mg/dL Plasma Lactic Acid Barber 1.0 (0.7-2.0) mmol/L Calcium 9.2 (8.4-10.2) mg/dL Magnesium 2.2 (1.6-2.3) mg/dL Total Bilirubin 0.5 (0.2-1.3) mg/dL AST 23 (17-59) U/L ALT 50 (21-72) U/L Alkaline Phosphatase 75 (38-126) U/L Ammonia <9 (<30) umol/L Total Creatine Kinase 42 L (55-170) U/L CK-MB (CK-2) 0.5 (0.0-2.4) ng/mL CK-MB (CK-2) Rel Index 1.2 Troponin I <0.012 (0.000-0.034) ng/mL Total Protein 6.5 (6.3-8.2) g/dL Albumin 3.7 (3.5-5.0) g/dL TSH 1.730 (0.465-4.680) mIU/L Urine Color Urine Appearance (Clear) Urine pH (5.0-8.0) Ur Specific [place] (1.001-1.035) Urine Protein (Negative) Urine Glucose (UA) (Negative) Urine Ketones (Negative) Urine Blood (Negative) Urine Nitrite (Negative) Urine Bilirubin (Negative) Urine Urobilinogen (<2.0) mg/dL Ur Leukocyte Esterase (Negative) Urine RBC (0-5) /hpf Urine WBC (0-5) /hpf Ur Squamous Epith Cells (0-4) /hpf Hyaline Casts (0-2) /lpf Urine Mucus (None) /hpf 07/17/17 07/17/17 07/17/17 Range/Units 20:40 20:40 20:40 WBC 5.6 (3.8-10.6) k/uL RBC 4.37 (4.30-5.90) m/uL Hgb 14.3 (13.0-17.5) gm/dL Hct 41.4 (39.0-53.0) % MCV 94.8 (80.0-100.0) fL MCH 32.7 (25.0-35.0) pg MCHC 34.5 (31.0-37.0) g/dL RDW 13.0 (11.5-15.5) % Plt Count 177 (150-450) k/uL Neutrophils % 72 % Lymphocytes % 18 % Monocytes % 7 % Eosinophils % 1 % Basophils % 0 % Neutrophils # 4.1 (1.3-7.7) k/uL Lymphocytes # 1.0 (1.0-4.8) k/uL Monocytes # 0.4 (0-1.0) k/uL Eosinophils # 0.1 (0-0.7) k/uL Basophils # 0.0 (0-0.2) k/uL PT 10.6 (9.0-12.0) sec INR 1.0 (<1.2) APTT 22.5 (22.0-30.0) sec VBG pH 7.38 (7.31-7.41) VBG pCO2 46 (37-51) mmHg VBG HCO3 26 (24-28) mmol/L Sodium (137-145) mmol/L Potassium (3.5-5.1) mmol/L Chloride (98-107) mmol/L Carbon Dioxide (22-30) mmol/L Anion Gap mmol/L BUN (9-20) mg/dL Creatinine (0.66-1.25) mg/dL Est GFR (MDRD) Af Amer (>60 ml/min/1.73 sqM) Est GFR (MDRD) Non-Af (>60 ml/min/1.73 sqM) Glucose (74-99) mg/dL Plasma Lactic Acid Barber (0.7-2.0) mmol/L Calcium (8.4-10.2) mg/dL Magnesium (1.6-2.3) mg/dL Total Bilirubin (0.2-1.3) mg/dL AST (17-59) U/L ALT (21-72) U/L Alkaline Phosphatase (38-126) U/L Ammonia (<30) umol/L Total Creatine Kinase (55-170) U/L CK-MB (CK-2) (0.0-2.4) ng/mL CK-MB (CK-2) Rel Index Troponin I (0.000-0.034) ng/mL Total Protein (6.3-8.2) g/dL Albumin (3.5-5.0) g/dL TSH (0.465-4.680) mIU/L Urine Color Urine Appearance (Clear) Urine pH (5.0-8.0) Ur Specific [place] (1.001-1.035) Urine Protein (Negative) Urine Glucose (UA) (Negative) Urine Ketones (Negative) Urine Blood (Negative) Urine Nitrite (Negative) Urine Bilirubin (Negative) Urine Urobilinogen (<2.0) mg/dL Ur Leukocyte Esterase (Negative) Urine RBC (0-5) /hpf Urine WBC (0-5) /hpf Ur Squamous Epith Cells (0-4) /hpf Hyaline Casts (0-2) /lpf Urine Mucus (None) /hpf 07/17/17 Range/Units 21:37 WBC (3.8-10.6) k/uL RBC (4.30-5.90) m/uL Hgb (13.0-17.5) gm/dL Hct (39.0-53.0) % MCV (80.0-100.0) fL MCH (25.0-35.0) pg MCHC (31.0-37.0) g/dL RDW (11.5-15.5) % Plt Count (150-450) k/uL Neutrophils % % Lymphocytes % % Monocytes % % Eosinophils % % Basophils % % Neutrophils # (1.3-7.7) k/uL Lymphocytes # (1.0-4.8) k/uL Monocytes # (0-1.0) k/uL Eosinophils # (0-0.7) k/uL Basophils # (0-0.2) k/uL PT (9.0-12.0) sec INR (<1.2) APTT (22.0-30.0) sec VBG pH (7.31-7.41) VBG pCO2 (37-51) mmHg VBG HCO3 (24-28) mmol/L Sodium (137-145) mmol/L Potassium (3.5-5.1) mmol/L Chloride (98-107) mmol/L Carbon Dioxide (22-30) mmol/L Anion Gap mmol/L BUN (9-20) mg/dL Creatinine (0.66-1.25) mg/dL Est GFR (MDRD) Af Amer (>60 ml/min/1.73 sqM) Est GFR (MDRD) Non-Af (>60 ml/min/1.73 sqM) Glucose (74-99) mg/dL Plasma Lactic Acid Barber (0.7-2.0) mmol/L Calcium (8.4-10.2) mg/dL Magnesium (1.6-2.3) mg/dL Total Bilirubin (0.2-1.3) mg/dL AST (17-59) U/L ALT (21-72) U/L Alkaline Phosphatase (38-126) U/L Ammonia (<30) umol/L Total Creatine Kinase (55-170) U/L CK-MB (CK-2) (0.0-2.4) ng/mL CK-MB (CK-2) Rel Index Troponin I (0.000-0.034) ng/mL Total Protein (6.3-8.2) g/dL Albumin (3.5-5.0) g/dL TSH (0.465-4.680) mIU/L Urine Color Yellow Urine Appearance Clear (Clear) Urine pH 6.5 (5.0-8.0) Ur Specific [place] 1.021 (1.001-1.035) Urine Protein Trace H (Negative) Urine Glucose (UA) Negative (Negative) Urine Ketones Negative (Negative) Urine Blood Negative (Negative) Urine Nitrite Negative (Negative) Urine Bilirubin Negative (Negative) Urine Urobilinogen <2.0 (<2.0) mg/dL Ur Leukocyte Esterase Trace H (Negative) Urine RBC 1 (0-5) /hpf Urine WBC 2 (0-5) /hpf Ur Squamous Epith Cells <1 (0-4) /hpf Hyaline Casts 1 (0-2) /lpf Urine Mucus Few H (None) /hpf Disposition Clinical Impression: Altered mental status Disposition: ADMITTED IP TO THIS HOSP Condition: Stable Referrals: Annamaria Jimenez MD [Primary Care Provider] - 1-2 days Decision to Admit Reason: Admit from EC Decision Date: 07/17/17 Decision Time: 23:02
[2017-07-17 20:57] LABS: Basophils % (A) 0 %; CH 32.4; CHCM 34.3; Eosinophils # (A) 0.1 k/uL (0-0.7); Eosinophils % (A) 1 %; HCT 41.4 % (39.0-53.0); HDW 2.82; HGB 14.3 gm/dL (13.0-17.5); Luc # (Auto) 0.09; Luc % (Auto) 2; Lymphocytes % (A) 18 %; MCH 32.7 pg (25.0-35.0); MCHC 34.5 g/dL (31.0-37.0); MCV 94.8 fL (80.0-100.0); Mean Platelet Volume 6.7; Monocytes # (A) 0.4 k/uL (0-1.0); Monocytes % (A) 7 %; Neutrophils # (A) 4.1 k/uL (1.3-7.7); Neutrophils % (A) 72 %; RBC 4.37 m/uL (4.30-5.90); WBC 5.6 k/uL (3.8-10.6); WBC (Perox) 5.68
[2017-07-17 20:58] LABS: VBG PH 7.38 (7.31-7.41)
[2017-07-17 21:09] LABS: Partial Thromboplastin Time 22.5 sec (22.0-30.0); Prothrombin Time 10.6 sec (9.0-12.0)
[2017-07-17 21:11] LABS: Ammonia <9 umol/L (<30)
[2017-07-17 21:12] LABS: ALT 50 U/L (21-72); AST 23 U/L (17-59); Alkaline Phosphatase 75 U/L (38-126); Anion Gap 10 mmol/L; Blood Urea Nitrogen 23 mg/dL (9-20); Calcium 9.2 mg/dL (8.4-10.2); Carbon Dioxide 24 mmol/L (22-30); Chloride 109 mmol/L (98-107); Glucose 108 mg/dL (74-99); Magnesium 2.2 mg/dL (1.6-2.3); Non-African American GFR(MDRD) >60 (>60 ml/min/1.73 sqM); Potassium 3.6 mmol/L (3.5-5.1); Sodium 143 mmol/L (137-145); Total Bilirubin 0.5 mg/dL (0.2-1.3); Total Protein 6.5 g/dL (6.3-8.2)
[2017-07-17 21:19] LABS: Creatine Kinase 42 U/L (55-170)
--- NOTE | 2017-07-17 21:29 | XR ---
EXAMINATION TYPE: XR chest 2V DATE OF EXAM: 07/17/2017 COMPARISON: 04/16/2016 HISTORY: 76-year-old male altered mental status and weakness TECHNIQUE: Frontal and lateral views FINDINGS: Heart is upper limits of normal in size. Atherosclerotic arch calcifications. Mild diffuse interstiti al prominence. Peribronchial cuffing is also noted. Some patchy right infrahilar right basilar opacit y. No pleural effusion. IMPRESSION: Chronic changes, possible chronic bronchitis/asthma. However, there is increased patchy right infrahi lar and right basilar opacity that could represent atelectasis or early pneumonia.
[2017-07-17 21:31] LABS: Creatine Kinase MB 0.5 ng/mL (0.0-2.4); Troponin I <0.012 ng/mL (0.000-0.034)
--- NOTE | 2017-07-17 21:36 | CT ---
EXAMINATION TYPE: CT brain wo con DATE OF EXAM: 07/17/2017 COMPARISON: NONE HISTORY: 76-year-old male Patient poor historian. Patient denies head complaints. History of weaknes s. TECHNIQUE: Examination was done in axial plane without intravenous contrast. Coronal and sagittal r econstructions performed. CT DLP: 849.2 mGycm Automated exposure control for dose reduction was used. FINDINGS: There is no evidence of acute intracranial hemorrhage, acute ischemic changes, mass, mass-effect, or extra-axial fluid collection. There is no effacement of cerebral sulci or basal subarachnoid cister ns. There is no midline shift. Salguero-white matter distinction is preserved. Moderate cerebral cortical and central cerebral volume loss with secondary mild prominence to the homero tricular system. Moderate patchy and confluent white matter hypodensities in both cerebral hemisphere s. Benign basal ganglionic calcifications. Trace mucosal thickening ethmoid air cells. Orbits and globes are intact. Paranasal sinuses well pneu matized. IMPRESSION: Moderate atrophy and confluent changes of chronic small vessel ischemic disease. No acute intracrania l abnormality seen.
[2017-07-17 21:47] LABS: Appearance,Urine Clear (Clear); Bilirubin,Urine Negative (Negative); Glucose,Urine (UA) Negative (Negative); Ketones,Urine Negative (Negative); Leukocyte Esterase,Urine Trace (Negative); Mucus,Urine Few /hpf; Nitrite,Urine Negative (Negative); PH, Urine 6.5 (5.0-8.0); Particle Count 5412; Protein,Urine Trace (Negative); RBC,Urine 1 /hpf (0-5); Specific Gravity,Urine 1.021 (1.001-1.035); Squamous Epithelial Cell,Urine <1 /hpf (0-4); UA Billing (MACRO vs. MICRO) MICRO; Urobilinogen,Urine <2.0 mg/dL (<2.0); WBC,Urine 2 /hpf (0-5)
[2017-07-17] MEDS ORDERED: AZITHROMYCIN 500 MG in SODIUM CHLORIDE 0.9% 250 ML IVPB SCH (22:00)
[2017-07-17] MEDS ORDERED: AZITHROMYCIN 500 MG in SODIUM CHLORIDE 0.9% 250 ML IVPB STA (22:23)
[2017-07-17] MEDS ORDERED: NALOXONE 0.4 MG/ML 1 ML VIAL IV PRN (22:55)
[2017-07-17] MEDS ORDERED: ACETAMINOPHEN TAB 325 MG TAB PO PRN (22:55)
[2017-07-18] MEDS: SODIUM CHLORIDE 0.9% 1,000 ML IV SCH (00:09)
[2017-07-18 00:46] VITALS: BMI 26.6
[2017-07-18 07:25] LABS: Basophils % (A) 1 %; CH 33.5; CHCM 33.8; Eosinophils # (A) 0.1 k/uL (0-0.7); Eosinophils % (A) 1 %; HCT 42.9 % (39.0-53.0); HDW 2.68; HGB 13.8 gm/dL (13.0-17.5); Luc % (Auto) 2; Lymphocytes # (A) 1.1 k/uL (1.0-4.8); Lymphocytes % (A) 19 %; MCH 32.1 pg (25.0-35.0); MCHC 32.2 g/dL (31.0-37.0); MCV 99.6 fL (80.0-100.0); Macrocytosis Slight; Mean Platelet Volume 7.3; Monocytes # (A) 0.5 k/uL (0-1.0); Monocytes % (A) 8 %; Neutrophils # (A) 4.1 k/uL (1.3-7.7); Neutrophils % (A) 70 %; RBC 4.31 m/uL (4.30-5.90); RDW 14.4 % (11.5-15.5); WBC 5.9 k/uL (3.8-10.6); WBC (Perox) 5.85
[2017-07-18 07:32] LABS: ALT 48 U/L (21-72); AST 23 U/L (17-59); Alkaline Phosphatase 56 U/L (38-126); Anion Gap 10 mmol/L; Blood Urea Nitrogen 20 mg/dL (9-20); Calcium 9.1 mg/dL (8.4-10.2); Carbon Dioxide 28 mmol/L (22-30); Chloride 107 mmol/L (98-107); Glucose 104 mg/dL (74-99); Non-African American GFR(MDRD) >60 (>60 ml/min/1.73 sqM); Potassium 3.9 mmol/L (3.5-5.1); Sodium 145 mmol/L (137-145); Total Bilirubin 0.6 mg/dL (0.2-1.3); Total Protein 6.5 g/dL (6.3-8.2)
[2017-07-18] MEDS: predniSONE 5 MG TAB PO SCH ×2 (08:25→20:43)
[2017-07-18] MEDS: FUROSEMIDE 40 MG TAB PO SCH (08:26)
[2017-07-18] MEDS: LISINOPRIL 10 MG TAB PO SCH (08:26)
[2017-07-18] MEDS ORDERED: ABIRATERONE ACETATE 500 MG PO SCH ×2 (09:00→18:00)
--- NOTE | 2017-07-18 12:00 | P.HPIM ---
History of Present Illness H&P Date: 07/18/17 Chief Complaint: Mental status change This is a 76-year-old gentleman with a very complex past medical history noted below significant for underlying prostate cancer on anti-androgen therapy by oncology who presented to the emergency room with worsening mental status change and combativeness. Patient is unable to provide any medical history. Most of the medical history was obtained by his daughter at bedside. Apparently patient at baseline has some mild cognitive impairment but for the past couple of weeks they've noticed significant change in his mentation. Patient has been hallucinating or frequently and for the past few days is being getting worse on a daily basis. He often see or described people in the room the do not exist. He is very incoherent. For the last few days his be more agitated and occasionally combative with his family. They were very concerned about his overall condition and decided to bring him to the emergency room. In the emergency room there was no significant labwork derangement. Computed tomography scan of the brain showed no acute intracranial findings. Urinalysis was essentially negative. Patient was admitted for further evaluation. Review of Systems Review of system: 14 points review of systems were obtained and were negative except to what were mentioned in the HPI. Past Medical History Past Medical History: Atrial Fibrillation, Cancer, Hypertension, Osteoarthritis (OA), Pneumonia, Prostate Disorder Additional Past Medical History / Comment(s): PROSTATE CANCER 2005(HAD SX ANS RADIATION),upper PERMANENT BRIDGE, POLYPS-benign), UTI, STATED HAD PNE VACCINE APRROX 3-4 YEARS AGO. History of Any Multi-Drug Resistant Organisms: None Reported Additional Past Surgical History / Comment(s): PROSTATECTOMY,COLONOSCOPY, RT INGUINAL HERNIA,"BLOOD REMOVED FROM BEHIND RETINA-RT EYE", rt cataract. Past Anesthesia/Blood Transfusion Reactions: No Reported Reaction Past Psychological History: No Psychological Hx Reported Smoking Status: Never smoker Past Alcohol Use History: Rare Additional Past Alcohol Use History / Comment(s): smoked off and on x 20 years, quit in the Past Drug Use History: None Reported - Past Family History Father Family Medical History: Myocardial Infarction ([place]) Mother Family Medical History: Cancer Additional Family Medical History / Comment(s): uterin cancer- at age 86 Medications and Allergies Home Medications Medication Instructions Recorded Confirmed Type Cholecalciferol [Vitamin D3] 2,000 unit PO DAILY 04/16/16 07/17/17 History Metoprolol Tartrate [Lopressor] 50 mg PO BID #180 tab 04/20/16 07/17/17 Rx Ferrous Sulfate [Iron (65 MG 325 mg PO DAILY 05/14/17 07/17/17 History Elemental)] Furosemide [Lasix] 40 mg PO DAILY 05/14/17 07/17/17 History Potassium Chloride [Klor-Con 20] 20 meq PO DAILY 05/14/17 07/17/17 History Rivaroxaban [Xarelto] 20 mg PO W/SUPPER 05/14/17 07/17/17 History predniSONE 5 mg PO BID 05/14/17 07/17/17 History Abiraterone Acetate [Zytiga] 1,000 mg PO DAILY 07/17/17 07/17/17 History Calcium Carbonate [Calcium] 600 mg PO DAILY 07/17/17 07/17/17 History Denosumab [Prolia] 1 dose INJ Q180D 07/17/17 07/17/17 History Isosorbide Mononitrate ER [Imdur] 15 mg PO DAILY 07/17/17 07/17/17 History Lisinopril [Zestril] 10 mg PO DAILY 07/17/17 07/17/17 History Lupron Injection 1 dose INJ Q180D 07/17/17 07/17/17 History Nitroglycerin Sl Tabs [Nitrostat] 0.4 mg SUBLINGUAL Q5M PRN 07/17/17 07/17/17 History Polyethylene Glycol 3350 [Miralax] 17 gm PO DAILY 07/17/17 07/17/17 History Allergies Allergy/AdvReac Type Severity Reaction Status Date / Time No Known Allergies Allergy Verified 07/17/17 19:53 Physical Exam Vitals: Vital Signs Temp Pulse Pulse Resp BP BP Pulse Ox 07/18/17 08:08 98 07/18/17 07:00 97.4 F L 60 18 146/74 98 07/18/17 02:39 20 07/18/17 01:03 97.2 F L 67 20 165/82 98 07/18/17 00:21 97.4 F L 61 18 150/83 97 07/17/17 22:48 98.3 F 62 17 156/83 99 07/17/17 21:52 63 18 121/70 98 07/17/17 20:08 97.5 F L 67 18 151/72 99 07/17/17 20:00 97.8 F 64 18 149/72 98 Intake and Output 07/17/17 07/18/17 07/18/17 22:59 06:59 14:59 Other: Voiding Method Toilet Urinal # Voids 3 3 # Bowel Movements 1 Weight 89.358 kg 89 kg General: The patient is awake and alert, in no distress Eye: there is normal conjunctiva bilaterally. Neck: The neck is supple, there is no JVD. Cardiovascular: Normal S1-S2, no S3-S4, no murmurs. Respiratory: Lungs clear to auscultation bilaterally Gastrointestinal: Abdomen is soft, nontender Musculoskeletal: There is no pedal edema. Neurological:. Speech is normal. Skin: Skin is warm and dry Results CBC & Chem 7: 07/18/17 06:51 07/18/17 06:51 Labs: Abnormal Lab Results - Last 24 Hours (Table) 07/17/17 07/17/17 07/17/17 Range/Units 20:40 20:40 21:37 Chloride 109 H (98-107) mmol/L BUN 23 H (9-20) mg/dL Glucose 108 H (74-99) mg/dL Total Creatine Kinase 42 L (55-170) U/L Urine Protein Trace H (Negative) Ur Leukocyte Esterase Trace H (Negative) Urine Mucus Few H (None) /hpf 07/18/17 Range/Units 06:51 Chloride (98-107) mmol/L BUN (9-20) mg/dL Glucose 104 H (74-99) mg/dL Total Creatine Kinase (55-170) U/L Urine Protein (Negative) Ur Leukocyte Esterase (Negative) Urine Mucus (None) /hpf Thrombosis Risk Factor Assmnt - Choose All That Apply Any of the Below Risk Factors Present?: No Each Risk Factor Represents 2 Points: Age 61-74 years Thrombosis Risk Factor Assessment Total Risk Factor Score: 2 Thrombosis Risk Factor Assessment Level: Low Risk Assessment and Plan Plan: 1. Acute mental status change 2. Acute psychosis 3. Chronic atrial fibrillation on anticoagulation with Rivaroxaban 4. Underlying prostate cancer with no known metastatic disease currently on antiestrogen therapy 5. Essential hypertension: Blood pressure well-controlled This is a 76-year-old gentleman who presented to the hospital with worsening mental status change, hallucination, psychosis, and agitation. there was no significant labwork derangement or evidence of toxo metabolic encephalopathy. Computed tomography scan of the brain showed no acute intracranial findings. Urinalysis was essentially negative. Thyroid function test checked and normal. Neurology, psychiatry, and oncology consulted. I would consider obtaining MRI of the brain to rule out metastatic disease. We will continue to follow closely. Repeat lab work in the morning.
[2017-07-18] MEDS: RIVAROXABAN 10 MG TAB PO SCH (17:22)
[2017-07-18] MEDS ORDERED: ABIRATERONE ACETATE 1000 MG PO SCH (18:00)
[2017-07-18] MEDS ORDERED: LORazepam 2 MG/ML INJ IV STA (19:04)
[2017-07-18] MEDS: METOPROLOL TARTRATE 50 MG TAB PO SCH (20:45)
[2017-07-18] MEDS ORDERED: LORazepam 0.5 MG TAB PO PRN (20:48)
[2017-07-18] MEDS ORDERED: AZITHROMYCIN 500 MG TAB PO SCH (21:00)
[2017-07-18] MEDS ORDERED: QUEtiapine 25 MG TAB PO SCH (21:00)
--- NOTE | 2017-07-18 21:01 | P.CN ---
Psychiatric Consult - . Consult date: 07/18/17 Consult:: 07/18/17 20:51 IDENTIFYING DATA: A 76-year-old male patient HPI: Is a 76-year-old male admitted to the medical floor [facility] a transfer from [facility]. Per chart history has been increased agitation and combativeness and he was admitted with mental status changes. Per chart history hallucinating frequently. Per him family histories been hallucinating for the past couple of weeks and has had memory problems that have been progressive he's never been formally diagnosed with Alzheimer's but they have been wondering about this. His states that he has never been physically combative. He has had some irritability. He has called 911 for example saw a fisherman spirit against the wall. He is not so much been having auditory hallucinations but it sounds like vivid visual hallucinations. When I interview the patient when I ask him what brought him here to the hospital he talks about bringing a box of donuts to the hospital. He talks about doughnuts frequently during the session and seems to perseverate about doughnuts. PAST PSYCHIATRIC HISTORY: Family history he does not have any psychiatric hospitalization history and no known psychiatric history. PMH: A. fib, prostate cancer, hypertension, osteoarthritis, pneumonia, UTI, right inguinal hernia ALLERGIES: No known ALLERGIES MEDICATIONS: 19, Imdur, Zestril, Lopressor, Narcan when necessary, MiraLAX, K Dur, prednisone, Seroquel 25 mines at at bedtime and Xarelto CHEMICAL DEPENDENCY HISTORY: JUST SOCIAL DRINKING FAMILY PSYCHIATRIC HISTORY: none known at this time FAMILY CHEMICAL DEPENDENCY HISTORY: none known at this time SOCIAL HISTORY: been asking who he lives with he makes reference to living over by [place]. Per his daughter he lives with his . He further makes reference to "mom lives with us in the cabin with doughnuts." When asked how many children he states he has "4, 5, 6 kids." MENTAL STATUS EXAM: he is alert and overall cooperative with the interview. He does not show any current agitation. He does show some range of affect and smiles at times. He is not oriented to date or to place he is oriented to person. He does not make any reference to thoughts of harm to self or others. He is perseverating on the topic of donuts. Per history he has been having some vivid visual hallucinations, this is not evident at this time in terms of him responding to any visual hallucinations. IMPRESSIONS: Unspecified psychosis symptoms, rule out related to stroke, rule out related to dementia process. Rule out major neurocognitive disorder. Rule out a delirium process. PLAN: At this time we will discontinue Seroquel and will order Ativan when necessary as needed for any agitation. An MRI of the brain is going to be ordered to rule out stroke. We'll hold off on the antipsychotic at this time until more is known about the exact etiology of his symptoms. Psychiatry will follow up and monitor his status, monitor for any psychosis symptoms. We'll monitor for any level of agitation.
--- NOTE | 2017-07-18 21:11 | P.CNNES ---
History of Present Illness Consult date: 07/18/17 Reason for Consult: Patient with altered mental status and agitation. History of Present Illness: This patient is a 76-year-old right-handed white male who apparently over the last 2 weeks as shown a decline in his cognitive abilities. According to his who provided the medical history about 2 weeks ago he was noted to be quite confused and agitated. He was taken to the local emergency room in [place] and was evaluated there at [facility]. According to the he underwent a computed tomography scan of the brain and some laboratory testing and was told that all these test results were normal and use discharge from the ER. The patient continued to deteriorate over the next 2 weeks. He has shown increasing symptoms of confusion and disorientation. The states that he was having visual hallucinations which were very vivid and had been worsening over the last 2 weeks. The onset of these hallucinations appears to be about 2 weeks ago when he was seen in the ER at [facility]. The patient does have a history of underlying prostate cancer. He has been followed by an oncologist and is undergone treatment for prostate cancer. The patient was brought into the emergency room yesterday and was seen in the ER by Dr. Castellon. He was sent for a computed tomography scan of the brain which was reported to show a moderate degree of atrophy and chronic white matter changes. My personal review of the CAT scan films reveals bilateral hypodensities in the occipital lobe. We are recommending an MRI of the brain to be done for further evaluation. The patient apparently has been agitated but not combative according to the . She feels there is been a rapid decline for his day-to-day functioning in the last 2 weeks. He does have a history of chronic atrial fibrillation. He is currently on Xarelto. CAT scan of the brain done yesterday failed to reveal any evidence of acute hemorrhage. The patient is to be seen by psychiatry as well for further assessment of acute psychosis. He has no previous history of underlying psychiatric disorders. The patient has undergone a prostatectomy. As noted he has been treated by an oncologist with chemotherapy and radiation. Oncology has been consulted and we will await their further recommendations. The patient is resting comfortably. He does have evidence of significant hearing and vision loss. He does appear to have some degree of hemianopsia on visual field testing today. As noted his CAT scan does reveal hypodensities in the occipital lobe. We will need to further evaluate him for acute stroke possibly involving both occipital lobes producing a cortical blindness or also peduncular hallucinations. We have described all of these findings in detail to the patient's . She is been updated on his overall condition. We will proceed with MRI of the brain tomorrow at which time we will be able to give further recommendations depending on these results. His overall prognosis at this time remains very guarded. Review of Systems Constitutional: Reports as per HPI Eyes: denies blurred vision, denies pain Ears, nose, mouth and throat: Denies headache, Denies sore throat Cardiovascular: Denies chest pain, Denies shortness of breath Respiratory: Denies cough Gastrointestinal: Denies abdominal pain, Denies diarrhea, Denies nausea, Denies vomiting Musculoskeletal: Denies myalgias Integumentary: Denies pruritus, Denies rash Neurological: Reports change in mentation, Reports confusion, Reports loss of vision, Reports memory loss, Denies numbness, Denies weakness Psychiatric: Reports difficulty concentrating, Reports disorientation, Reports hallucinations, Reports irritability, Reports memory loss, Reports mood swings, Reports paranoia, Denies anxiety, Denies depression Endocrine: Denies fatigue, Denies weight change Past Medical History Past Medical History: Atrial Fibrillation, Cancer, Hypertension, Osteoarthritis (OA), Pneumonia, Prostate Disorder Additional Past Medical History / Comment(s): PROSTATE CANCER 2005(HAD SX ANS RADIATION),upper PERMANENT BRIDGE, POLYPS-benign), UTI, STATED HAD PNE VACCINE APRROX 3-4 YEARS AGO. History of Any Multi-Drug Resistant Organisms: None Reported Additional Past Surgical History / Comment(s): PROSTATECTOMY,COLONOSCOPY, RT INGUINAL HERNIA,"BLOOD REMOVED FROM BEHIND RETINA-RT EYE", rt cataract. Past Anesthesia/Blood Transfusion Reactions: No Reported Reaction Past Psychological History: No Psychological Hx Reported Smoking Status: Never smoker Past Alcohol Use History: Rare Additional Past Alcohol Use History / Comment(s): smoked off and on x 20 years, quit in the Past Drug Use History: None Reported - Past Family History Father Family Medical History: Myocardial Infarction ([place]) Mother Family Medical History: Cancer Additional Family Medical History / Comment(s): uterin cancer- at age 86 Medications and Allergies Home Medications Medication Instructions Recorded Confirmed Type Cholecalciferol [Vitamin D3] 2,000 unit PO DAILY 04/16/16 07/17/17 History Metoprolol Tartrate [Lopressor] 50 mg PO BID #180 tab 04/20/16 07/17/17 Rx Ferrous Sulfate [Iron (65 MG 325 mg PO DAILY 05/14/17 07/17/17 History Elemental)] Furosemide [Lasix] 40 mg PO DAILY 05/14/17 07/17/17 History Potassium Chloride [Klor-Con 20] 20 meq PO DAILY 05/14/17 07/17/17 History Rivaroxaban [Xarelto] 20 mg PO W/SUPPER 05/14/17 07/17/17 History predniSONE 5 mg PO BID 05/14/17 07/17/17 History Abiraterone Acetate [Zytiga] 1,000 mg PO DAILY 07/17/17 07/17/17 History Calcium Carbonate [Calcium] 600 mg PO DAILY 07/17/17 07/17/17 History Denosumab [Prolia] 1 dose INJ Q180D 07/17/17 07/17/17 History Isosorbide Mononitrate ER [Imdur] 15 mg PO DAILY 07/17/17 07/17/17 History Lisinopril [Zestril] 10 mg PO DAILY 07/17/17 07/17/17 History Lupron Injection 1 dose INJ Q180D 07/17/17 07/17/17 History Nitroglycerin Sl Tabs [Nitrostat] 0.4 mg SUBLINGUAL Q5M PRN 07/17/17 07/17/17 History Polyethylene Glycol 3350 [Miralax] 17 gm PO DAILY 07/17/17 07/17/17 History Allergies Allergy/AdvReac Type Severity Reaction Status Date / Time No Known Allergies Allergy Verified 07/17/17 19:53 Physical Examination - Vital Signs Vital Signs: Vital Signs Temp Pulse Pulse Resp BP BP Pulse Ox 07/18/17 08:08 98 07/18/17 07:00 97.4 F L 60 18 146/74 98 07/18/17 02:39 20 07/18/17 01:03 97.2 F L 67 20 165/82 98 07/18/17 00:21 97.4 F L 61 18 150/83 97 07/17/17 22:48 98.3 F 62 17 156/83 99 07/17/17 21:52 63 18 121/70 98 07/17/17 20:08 97.5 F L 67 18 151/72 99 07/17/17 20:00 97.8 F 64 18 149/72 98 Intake and Output 07/17/17 07/18/17 07/18/17 22:59 06:59 14:59 Other: Voiding Method Toilet Urinal # Voids 3 3 # Bowel Movements 1 Weight 89.358 kg 89 kg - Constitutional General appearance: average body habitus, cooperative - EENT EENT: PERRL, mucous membranes moist - Respiratory Respiratory: lungs clear, normal breath sounds - Cardiovascular Cardiovascular: regular rate, normal S1, normal S2 Extremities: no peripheral edema bilaterally - Gastrointestinal Gastrointestinal: normoactive bowel sounds - Integumentary Integumentary: normal - Neurologic Cranial nerve examination: PERRL, EOMI, VFF, V1/V2/V3 grossly intact, face symmetric, tongue midline, intact gag reflex, intact corneal reflex, normal palatal elevation Speech examination: intact Sensorimotor examination: intact Motor examination - right side: 4/5: biceps, triceps, wrist flexion, wrist extension, resolute professional, hip flexors, knee extensors, dorsiflexion, toe extension (EHL) , plantarflexion Motor examination - left side: 4/5: biceps, triceps, wrist flexion, wrist extension, resolute professional, hip flexors, knee extensors, dorsiflexion, toe extension (EHL) , plantarflexion Detailed sensory examination: intact Reflex and gait examination: intact Reflexes: 1+: ankle, bicep, knee, tricep - Musculoskeletal Musculoskeletal: no pain - Psychiatric Psychiatric: mood/affect appropriate, cooperative Results - Laboratory Findings CBC and BMP: 07/19/17 08:34 07/19/17 08:34 Abnormal Lab Findings: Abnormal Labs 07/17/17 07/17/17 07/17/17 20:40 20:40 21:37 Chloride 109 H BUN 23 H Glucose 108 H Total Creatine Kinase 42 L Urine Protein Trace H Ur Leukocyte Esterase Trace H Urine Mucus Few H 07/18/17 06:51 Chloride BUN Glucose 104 H Total Creatine Kinase Urine Protein Ur Leukocyte Esterase Urine Mucus Assessment and Plan (1) Acute encephalopathy Status: Acute Code(s): G93.40 - ENCEPHALOPATHY, UNSPECIFIED (2) Prostate cancer Status: Chronic Code(s): C61 - MALIGNANT NEOPLASM OF PROSTATE (3) New onset atrial fibrillation Status: Acute Code(s): I48.91 - UNSPECIFIED ATRIAL FIBRILLATION (4) UTI (urinary tract infection) Status: Acute Code(s): N39.0 - URINARY TRACT INFECTION, SITE NOT SPECIFIED Plan: This patient is a 76-year-old male being evaluated for acute mental status changes over the last 2 weeks. According to his who provided the medical history he has been having vivid and multiple hallucinations for the past 2 weeks. He was seen in the emergency room at [facility] 2 weeks ago and underwent a computed tomography scan of the brain and some laboratory testing both of which are reported negative. He was discharged from the ER. The states he continued to deteriorate and is showing increasing symptoms of hallucinations and aggressive behavior. He has not shown any severe episodes of aggressive behavior toward his Haroldo. She does state that he becomes agitated and angry and goes off the handle very easily. The patient's neurological examination reveals him to have significant visual loss bilaterally. Review of his CAT scan of the brain reveals bilateral hypodensities in the occipital lobe. We are recommending an MRI of the brain for further evaluation of possible bilateral occipital strokes. This condition can be associated with visual hallucinations. Also possibility of cortical blindness. The patient is to be evaluated by psychiatry as well and we will await their further recommendations. This patient's overall prognosis at this time remains guarded. Case was discussed at length with the patient's and son at bedside. All of their questions were answered. They're aware of his guarded condition. We will continue close neurological follow-up with this patient during this admission. Time with Patient: Greater than 30
[2017-07-19] MEDS: SODIUM CHLORIDE 0.9% 1,000 ML IV SCH ×2 (00:57→23:53)
[2017-07-19] MEDS ORDERED: LORazepam 2 MG/ML INJ IV STA ×3 (02:47→21:59)
[2017-07-19] MEDS: POLYETHYLENE GLYCOL 3350 17 GM POWD.PACK PO SCH (07:46)
[2017-07-19] MEDS: LISINOPRIL 10 MG TAB PO SCH (07:48)
[2017-07-19] MEDS: ISOSORBIDE MONONITRATE ER 15 MG TAB PO SCH (07:48)
[2017-07-19] MEDS: METOPROLOL TARTRATE 50 MG TAB PO SCH ×2 (07:48→19:42)
[2017-07-19] MEDS: POTASSIUM CHLORIDE ER 20 MEQ TAB.ER PO SCH (07:48)
[2017-07-19] MEDS: FUROSEMIDE 40 MG TAB PO SCH (07:48)
[2017-07-19] MEDS: predniSONE 5 MG TAB PO SCH (07:49)
--- NOTE | 2017-07-19 09:52 | US ---
EXAMINATION TYPE: US carotid duplex BILAT DATE OF EXAM: 07/19/2017 COMPARISON: NONE CLINICAL HISTORY: 76-year-old male Possible acute stroke and hallucinations.. Stenosis TECHNIQUE: Carotid duplex ultrasound examination. Indirect Doppler criteria was utilized. FINDINGS: Salguero scale images show minimal intimal changes at the bifurcations. EXAM MEASUREMENTS: RIGHT: Peak Systolic Velocity (PSV) cm/sec ----- Right CCA: 72.1 ----- Right ICA: 56.1 ----- Right ECA: 91.2 ICA/CCA ratio: 0.8 RIGHT: End Diastole cm/sec ----- Right CCA: 14.9 ----- Right ICA: 15.9 ----- Right ECA: 9.7 LEFT: Peak Systolic Velocity (PSV) cm/sec ----- Left CCA: 63.9 ----- Left ICA: 68.0 ----- Left ECA: 55.9 ICA/CCA ratio: 1.1 LEFT: End Diastole cm/sec ----- Left CCA: 16.2 ----- Left ICA: 21.4 ----- Left ECA: 8.6 VERTEBRALS (direction of flow): Right Vertebral: Antegrade Left Vertebral: Antegrade Rhythm: Normal IMPRESSION: No hemodynamically significant stenosis appreciated in either internal carotid artery. Criteria for Assigning % of Stenosis / Diameter reduction (Estimation based on the indirect measurements of the internal carotid artery velocities (ICA PSV). 1. Normal (no stenosis)=ICA PSV < 125 cm/s: ratio < 2.0: ICA EDV<40 cm/s. 2. Less than 50% stenosis=ICA PSV < 125 cm/s: ratio < 2.0: ICA EDV<40 cm/s. 3. 50 to 69% stenosis=ICA PSV of 125 to 230 cm/s: ration 2.0 ? 4.0: ICA EDV 40-100 cm/s. 4. Greater than 70% stenosis to near occlusion= ICA PSV > 230 cm/s: ratio > 4.0: ICA EDV > 100 cm/s. 5. Near occlusion= ICA PSV velocities may be low or undetectable: variable ratio and ICA EDV. 6. Total occlusion=unable to detect flow.
[2017-07-19 10:04] LABS: Basophils % (A) 0 %; CH 32.3; CHCM 33.3; Eosinophils # (A) 0.1 k/uL (0-0.7); Eosinophils % (A) 1 %; HCT 48.1 % (39.0-53.0); HDW 2.75; HGB 15.4 gm/dL (13.0-17.5); Luc # (Auto) 0.06; Luc % (Auto) 1; Lymphocytes # (A) 0.9 k/uL (1.0-4.8); Lymphocytes % (A) 14 %; MCH 31.2 pg (25.0-35.0); MCV 97.4 fL (80.0-100.0); Mean Platelet Volume 6.7; Monocytes # (A) 0.4 k/uL (0-1.0); Monocytes % (A) 6 %; Neutrophils % (A) 78 %; RBC 4.93 m/uL (4.30-5.90); RDW 13.4 % (11.5-15.5); WBC 6.4 k/uL (3.8-10.6); WBC (Perox) 6.48
[2017-07-19 10:29] LABS: ALT 47 U/L (21-72); AST 27 U/L (17-59); Alkaline Phosphatase 60 U/L (38-126); Anion Gap 12 mmol/L; Blood Urea Nitrogen 26 mg/dL (9-20); Calcium 9.2 mg/dL (8.4-10.2); Carbon Dioxide 25 mmol/L (22-30); Chloride 107 mmol/L (98-107); Cholesterol 181 mg/dL (<200); Glucose 128 mg/dL (74-99); HDL Cholesterol 49 mg/dL (40-60); Non-African American GFR(MDRD) >60 (>60 ml/min/1.73 sqM); Potassium 3.5 mmol/L (3.5-5.1); Sodium 144 mmol/L (137-145); Total Bilirubin 0.9 mg/dL (0.2-1.3); Total Protein 7.3 g/dL (6.3-8.2)
--- NOTE | 2017-07-19 11:51 | P.PN ---
Subjective Patient is awake and alert today. He is still confused. He was not making sense this morning when he was talking to me. Daughter bedside. He was agitated last night requiring IV Ativan. Objective - Vital Signs Vital signs: Vital Signs Temp 97.8 F 07/19/17 07:00 Pulse 82 07/19/17 07:00 Resp 20 07/19/17 07:00 BP 154/79 07/19/17 07:00 Pulse Ox 98 07/19/17 07:00 Intake & Output 07/18/17 07/19/17 07/19/17 18:59 06:59 18:59 Intake Total 200 Balance 200 Intake: Oral 200 Other: Voiding Method Toilet Urinal # Voids 2 1 # Bowel Movements 1 - Exam General: The patient is awake and alert, in no distress Eye: there is normal conjunctiva bilaterally. Neck: The neck is supple, there is no JVD. Cardiovascular: Normal S1-S2, no S3-S4, no murmurs. Respiratory: Lungs clear to auscultation bilaterally Gastrointestinal: Abdomen is soft, nontender Musculoskeletal: There is no pedal edema. Neurological:. Speech is normal. Skin: Skin is warm and dry - Labs CBC & Chem 7: 07/19/17 08:34 07/19/17 08:34 Labs: Abnormal Lab Results - Last 24 Hours (Table) 07/19/17 07/19/17 Range/Units 08:34 08:34 Lymphocytes # 0.9 L (1.0-4.8) k/uL BUN 26 H (9-20) mg/dL Glucose 128 H (74-99) mg/dL LDL Cholesterol, Calc 108 H (0-99) mg/dL Assessment and Plan Plan: 1. Acute mental status change 2. Acute psychosis 3. Chronic atrial fibrillation on anticoagulation with Rivaroxaban 4. Underlying prostate cancer with no known metastatic disease currently on antiestrogen therapy 5. Essential hypertension: Blood pressure well-controlled This is a 76-year-old gentleman who presented to the hospital with worsening mental status change, hallucination, psychosis, and agitation. there was no significant labwork derangement or evidence of toxo metabolic encephalopathy. Computed tomography scan of the brain showed no acute intracranial findings. Urinalysis was essentially negative. Thyroid function test checked and normal. Neurology, psychiatry, and oncology consulted. MRI of the brain ordered for today. We will continue to follow closely. Repeat lab work in the morning.
[2017-07-19] MEDS: CHOLECALCIFEROL 1,000 UNIT TAB PO SCH (12:11)
[2017-07-19] MEDS: FERROUS SULFATE 325 MG TAB PO SCH (12:11)
--- NOTE | 2017-07-19 14:32 | P.PN ---
Progress Note - Text Progress Note Date: 07/19/17 Patient seen this morning for f/u visit following initial psychiatric evaluation yesterday. He is sitting on the side of his bed, accompanied by his and daughter. Patient is able to identify his and daughter. He has some confusion in regards to being in a hospital location, but able to state that he is in [place] and correctly identifies the town in which he resides. Also, oriented to month, year and day of the week. Patient does continue to make illogical comments or discuss events that occurred several years ago. His and daughter state that patient has been showing some decline since March or April of 2017. Daughter states that patient has had some memory difficulties but these symptoms were subtle up until two weeks ago when symptoms significantly worsened. He has been experiencing hallucinations as well. Patient's wrote down examples of some of the hallucinations that patient has experienced and most have been related to pt seeing animals with some being small children as well. His daughter states that he has been having a shuffling gait as well. Pt's mood is euthymic. He does not appear to be responding to hallucinations during interview with this provider. Pt has had some episodes of agitation during hospitalization that have required the use of PRN Ativan. MENTAL STATUS EXAM: Pt is a 76yo male who appears stated age, wearing a hospital gown and sitting on the edge of the bed. His attitude is pleasant and behavior cooperative without agitation. Eye contact is fair. Speech spontaneous with regular rate and volume. He does not report any thoughts of self harm or harm towards others. Does not appear to be responding to any hallucinations at this time, but does have a h/o recent visual hallucinations according to documentation and collateral information by family members. Pt is oriented to person, time and partially to place. Judgment is fair and insight limited. ASSESSMENT: 1. Psychosis Unspecified 2. R/O Psychosis secondary to medical condition (CVA) 3. R/O Medication-induced Delirium 4. R/O Major Neurocognitive Disorder with Lewy Bodies PLAN: Continue Ativan PRN for acute agitation. Awaiting MRI to rule out stroke. We'll hold off on antipsychotics and/or dementia medications at this time until more is known about the exact etiology of his symptoms. Psychiatry will follow-up and monitor for increased agitation.
--- NOTE | 2017-07-19 17:15 | P.CONS ---
History of Present Illness - Reason for Consult Consult date: 07/19/17 Prostate cancer, on zytiga and prednisone Requesting physician: Santino Riley - Chief Complaint agitation, hallucinations - History of Present Illness We have been asked to see patient for history of prostate cancer, currently on Zytiga and prednisone, patient is not known to our service. Some of his prostate cancer history taken from the chart. Pt has had prostatectomy and radiation in the past, I do not know if the pt has ever had chemotherapy or how long he has been on the zytiga/pred. I tried to call with no answer. Pt is sitting at bedside with his arms up around his head, he speaks to me about looking out for the headless horseman cause Halloween is near, he was not aggressive with me, he did not want to be examined, he denied pain or wanting anything. Review of Systems ROS unobtainable: due to mental status Past Medical History Past Medical History: Atrial Fibrillation, Cancer, Hypertension, Osteoarthritis (OA), Pneumonia, Prostate Disorder Additional Past Medical History / Comment(s): PROSTATE CANCER 2005(HAD SX ANS RADIATION),upper PERMANENT BRIDGE, POLYPS-benign), UTI, STATED HAD PNE VACCINE APRROX 3-4 YEARS AGO. History of Any Multi-Drug Resistant Organisms: None Reported Additional Past Surgical History / Comment(s): PROSTATECTOMY,COLONOSCOPY, RT INGUINAL HERNIA,"BLOOD REMOVED FROM BEHIND RETINA-RT EYE", rt cataract. Past Anesthesia/Blood Transfusion Reactions: No Reported Reaction Past Psychological History: No Psychological Hx Reported Smoking Status: Never smoker Past Alcohol Use History: Rare Additional Past Alcohol Use History / Comment(s): smoked off and on x 20 years, quit in the Past Drug Use History: None Reported - Past Family History Father Family Medical History: Myocardial Infarction ([place]) Mother Family Medical History: Cancer Additional Family Medical History / Comment(s): uterin cancer- at age 86 Medications and Allergies Home Medications Medication Instructions Recorded Confirmed Type Cholecalciferol [Vitamin D3] 2,000 unit PO DAILY 04/16/16 07/17/17 History Metoprolol Tartrate [Lopressor] 50 mg PO BID #180 tab 04/20/16 07/17/17 Rx Ferrous Sulfate [Iron (65 MG 325 mg PO DAILY 05/14/17 07/17/17 History Elemental)] Furosemide [Lasix] 40 mg PO DAILY 05/14/17 07/17/17 History Potassium Chloride [Klor-Con 20] 20 meq PO DAILY 05/14/17 07/17/17 History Rivaroxaban [Xarelto] 20 mg PO W/SUPPER 05/14/17 07/17/17 History predniSONE 5 mg PO BID 05/14/17 07/17/17 History Abiraterone Acetate [Zytiga] 1,000 mg PO DAILY 07/17/17 07/17/17 History Calcium Carbonate [Calcium] 600 mg PO DAILY 07/17/17 07/17/17 History Denosumab [Prolia] 1 dose INJ Q180D 07/17/17 07/17/17 History Isosorbide Mononitrate ER [Imdur] 15 mg PO DAILY 07/17/17 07/17/17 History Lisinopril [Zestril] 10 mg PO DAILY 07/17/17 07/17/17 History Lupron Injection 1 dose INJ Q180D 07/17/17 07/17/17 History Nitroglycerin Sl Tabs [Nitrostat] 0.4 mg SUBLINGUAL Q5M PRN 07/17/17 07/17/17 History Polyethylene Glycol 3350 [Miralax] 17 gm PO DAILY 07/17/17 07/17/17 History Allergies Allergy/AdvReac Type Severity Reaction Status Date / Time No Known Allergies Allergy Verified 07/17/17 19:53 Physical Exam Vitals: Vital Signs Temp Pulse Resp BP Pulse Ox 07/19/17 15:00 97.9 F 113 H 18 135/78 95 07/19/17 07:00 97.8 F 82 20 154/79 98 Intake and Output 07/19/17 07/19/17 07/19/17 06:59 14:59 22:59 Intake Total 0 Balance 0 Intake: Oral 0 Other: # Voids 1 3 Pt sitting at bedside with his arms up around his head, no visible physical distress noted, respirations even and unlabored, pt did not want me to examine him - Constitutional General appearance: average body habitus - EENT Eyes: EOMI foot Peripheral Edema: bilateral: 2+ - Integumentary Integumentary: normal - Psychiatric pt knew Halloween was getting close, knew his name Psychiatric: appropriate affect, no intact judgment & insight Results CBC & Chem 7: 07/19/17 08:34 07/19/17 08:34 Labs: Abnormal Lab Results - Last 24 Hours (Table) 07/19/17 07/19/17 Range/Units 08:34 08:34 Lymphocytes # 0.9 L (1.0-4.8) k/uL BUN 26 H (9-20) mg/dL Glucose 128 H (74-99) mg/dL LDL Cholesterol, Calc 108 H (0-99) mg/dL Chest x-ray: report reviewed CT Scan - head: report reviewed Assessment and Plan (1) Altered mental status Narrative/Plan: Patient is being worked up by neurology and psychiatry. Await MRI of the brain results. Status: Acute (2) Prostate cancer Narrative/Plan: Until confirmation of initiation of treatment hold zytiga, decrease prednisone to 5mg daily. Will try to get a hold of family to see when this treatment was initiated and who the treating Oncologist is. Status: Chronic
[2017-07-19] MEDS: RIVAROXABAN 10 MG TAB PO SCH (17:29)
--- NOTE | 2017-07-19 19:36 | MR ---
EXAMINATION TYPE: MR brain wo/w con DATE OF EXAM: 07/19/2017 COMPARISON: 07/17/2017 HISTORY: AMS, hallucinations, agitation TECHNIQUE: Multiplanar, multisequence images of the brain and brainstem is performed without and with IV contras t, utilizing 9 mL intravenous Gadavist . FINDINGS: Diffusion weighted images demonstrate no evidence of a recent infarct or other diffusion ab normality. There is no mass or mass effect. No vasogenic or cytotoxic edema. Throughout the centrum semiovale and the seaman radiata is a moderately prominent bilateral pattern o f nonspecific small foci of T2 prolongation, most conspicuous on the T2 FLAIR sequence. These deep wh ite matter periventricular findings are nonspecific, and while they statistically are most often asso ciated with small vessel ischemic change, clinical exclusion of other deep white matter etiologies is requested. The extra-axial compartment is unremarkable. There is no extra-axial fluid collection, and the ventri cular system and cisternal spaces are normal in size and appearance. The brain volume is age appropr iate. Midline structures demonstrate normal morphology. The craniocervical junction appears within normal limits. The visualized sinuses are clear and the globes are intact. Post contrast images demonstrate no abnormal enhancement. The dural venous sinuses appear patent. IMPRESSION: 1. Negative for acute, subacute, or remote infarction. 2. Moderately prominent nonspecific pattern of multifocal seaman radiata and centrum semiovale T2 hyp erintense foci.
[2017-07-19] MEDS ORDERED: INFLUENZA VACCINE (6 MOS+) 60 MCG/0.5 ML SYRINGE IM ONE (19:59)
[2017-07-19] MEDS: LORazepam 2 MG/ML INJ IM PRN (21:07)
[2017-07-20 01:35] VITALS: RESP 20; TEMP 98.8
--- NOTE | 2017-07-20 02:50 | P.PN ---
Subjective Progress Note Date: 07/19/17 This patient is a 76 year old male who was seen in Neurology consultation yesterday for evaluation of altered mental status and hallucinations. Patient apparently had sudden onset of there symptoms over 2 weeks. His neurologic examination suggested possibility of acute stroke syndrome involving the occipital lobes of the brain. The patient is being scheduled for MRI of the brain later today for further evaluation. Psychiatry has been consulted fror further evaluation and recommendations. He is being evaluated by psychiatry for possible acute psychosis. The patient was able to complete MRI of the brain today. MRI is reported negative for any acute changes. There is no evidence for stroke on his MRI of the brain. He does seem to be more appropriate today and does not seem as confused as when he was when admitted to the hospital. We have recommended that he should have laboratory testing done to rule out underlying sepsis. His neurological examination at this time does not indicate evidence for Lewy body dementia. We will await further recommendations from psychiatry in regards to specific medications that may be helpful for this patient. This patient's overall prognosis at this time remains guarded. Objective - Vital Signs Vital signs: Vital Signs Temp 97.8 F 07/19/17 07:00 Pulse 82 07/19/17 07:00 Resp 20 07/19/17 07:00 BP 154/79 07/19/17 07:00 Pulse Ox 98 07/19/17 07:00 Intake & Output 07/18/17 07/19/17 07/19/17 18:59 06:59 18:59 Intake Total 200 Balance 200 Intake: Oral 200 Other: Voiding Method Toilet Urinal # Voids 2 1 # Bowel Movements 1 - Exam Physical Examination: PHYSICAL EXAMINATION: Patient is resting comfortably in bed. VITAL SIGNS: Blood pressure is [135/78]. Heart rate is [112]. Respiration is [18 ]. Temperature is [97.9]. HEENT: Head is atraumatic, neck is supple, there were no carotid bruits. CHEST: Lungs are clear to auscultation and percussion. CARDIAC: S1, S2 normal rate and rhythm. There is no murmur. ABDOMEN: Soft and nontender. Bowel sounds are present. EXTREMITIES: There is no pedal edema. Peripheral pulses are present. Neurological examination: Patient's neurological examination is unchanged from yesterday. He remains pleasantly confused. MRI fails to reveal any evidence of acute stroke. - Labs CBC & Chem 7: 07/19/17 08:34 07/19/17 08:34 Labs: Abnormal Lab Results - Last 24 Hours (Table) 07/19/17 07/19/17 Range/Units 08:34 08:34 Lymphocytes # 0.9 L (1.0-4.8) k/uL BUN 26 H (9-20) mg/dL Glucose 128 H (74-99) mg/dL LDL Cholesterol, Calc 108 H (0-99) mg/dL Assessment and Plan (1) Acute encephalopathy Status: Acute Code(s): G93.40 - ENCEPHALOPATHY, UNSPECIFIED (2) Prostate cancer Status: Chronic Code(s): C61 - MALIGNANT NEOPLASM OF PROSTATE (3) New onset atrial fibrillation Status: Acute Code(s): I48.91 - UNSPECIFIED ATRIAL FIBRILLATION (4) UTI (urinary tract infection) Status: Acute Code(s): N39.0 - URINARY TRACT INFECTION, SITE NOT SPECIFIED Plan: This patient is a 76-year-old male being evaluated for acute mental status changes over the last 2 weeks. According to his who provided the medical history he has been having vivid and multiple hallucinations for the past 2 weeks. He was seen in the emergency room at [facility] 2 weeks ago and underwent a computed tomography scan of the brain and some laboratory testing both of which are reported negative. He was discharged from the ER. The states he continued to deteriorate and is showing increasing symptoms of hallucinations and aggressive behavior. He has not shown any severe episodes of aggressive behavior toward his Haroldo. She does state that he becomes agitated and angry and goes off the handle very easily. The patient's neurological examination reveals him to have significant visual loss bilaterally. Review of his CAT scan of the brain reveals bilateral hypodensities in the occipital lobe. We are recommending an MRI of the brain for further evaluation of possible bilateral occipital strokes. This condition can be associated with visual hallucinations. Also possibility of cortical blindness. Patient did undergo MRI of the brain today in the initial report indicates no acute stroke. The patient is to be evaluated by psychiatry as well and we will await their further recommendations. This patient's overall prognosis at this time remains guarded. Case was discussed at length with the patient's and son at bedside. All of their questions were answered. They' re aware of his guarded condition. We will continue close neurological follow- up with this patient during this admission.
[2017-07-20] MEDS: LORazepam 2 MG/ML INJ IM PRN ×2 (07:17→10:36)
[2017-07-20 08:40] VITALS: BP 148/98; PULSE 96
[2017-07-20] MEDS ORDERED: predniSONE 5 MG TAB PO SCH (09:00)
[2017-07-20 10:08] LABS: ALT 47 U/L (21-72); AST 29 U/L (17-59); Alkaline Phosphatase 68 U/L (38-126); Anion Gap 11 mmol/L; Blood Urea Nitrogen 20 mg/dL (9-20); Calcium 8.9 mg/dL (8.4-10.2); Carbon Dioxide 21 mmol/L (22-30); Chloride 111 mmol/L (98-107); Glucose 100 mg/dL (74-99); Non-African American GFR(MDRD) >60 (>60 ml/min/1.73 sqM); Potassium 3.6 mmol/L (3.5-5.1); Sodium 143 mmol/L (137-145); Total Bilirubin 0.8 mg/dL (0.2-1.3); Total Protein 6.5 g/dL (6.3-8.2)
[2017-07-20 10:34] LABS: Basophils % (A) 0 %; CH 32.8; CHCM 33.9; Eosinophils # (A) 0.1 k/uL (0-0.7); Eosinophils % (A) 1 %; HCT 43.4 % (39.0-53.0); HDW 2.76; HGB 14.3 gm/dL (13.0-17.5); Luc # (Auto) 0.15; Luc % (Auto) 2; Lymphocytes # (A) 1.2 k/uL (1.0-4.8); Lymphocytes % (A) 15 %; MCH 31.9 pg (25.0-35.0); MCHC 32.8 g/dL (31.0-37.0); Mean Platelet Volume 6.7; Monocytes # (A) 0.7 k/uL (0-1.0); Monocytes % (A) 9 %; Neutrophils # (A) 5.9 k/uL (1.3-7.7); Neutrophils % (A) 73 %; RBC 4.47 m/uL (4.30-5.90); RDW 13.3 % (11.5-15.5); WBC (Perox) 7.92
--- NOTE | 2017-07-20 11:38 | P.DS ---
Providers Date of admission: 07/17/17 23:02 Expected date of discharge: 07/20/17 Attending physician: Santino Riley Consults: 07/17/17 22:55 Consult Physician Urgent Consulting Provider: Ashley Eduardo Consult Reason/Comments: Dementia, agitation. Do you want consulting provider notified?: Yes, Notify in am 07/18/17 11:52 Consult Physician Routine Consulting Provider: Wolf Pace Consult Reason/Comments: Prostate cancer Do you want consulting provider notified?: Yes Consult Physician Routine Consulting Provider: Chuck Luna Consult Reason/Comments: Mental status change Do you want consulting provider notified?: Yes Primary care physician: Annamaria Jimenez Hospital Course: 1. Acute mental status change 2. Acute psychosis 3. Chronic atrial fibrillation on anticoagulation with Rivaroxaban 4. Underlying prostate cancer with no known metastatic disease currently on antiestrogen therapy 5. Essential hypertension: Blood pressure well-controlled This is a 76-year-old gentleman who presented to the hospital with worsening mental status change, hallucination, psychosis, and agitation. Patient symptoms had been progressively worsening over the past couple of weeks. Patient is not known to have any underlying psychiatric disorder. He was recently diagnosed with mild dementia/cognitive impairment. He was still able to manage his finances and drive and take care of his activities of daily living up until a few days ago before this presentation. Since admission, patient has been getting progressively worse. His hallucinations are getting worse and he is been more agitated. He appeared very restless. He is not making sense with his speech. there was no significant labwork derangement or evidence of toxo metabolic encephalopathy. Computed tomography scan of the brain showed no acute intracranial findings. Urinalysis was essentially negative. Thyroid function test checked and normal. Patient was seen and evaluated by both neurology and psychiatry. He underwent an MRI of the brain that was negative for any acute or subacute infarct. Noted a prominent nonspecific pattern of multifocal seaman radiata hyper intense foci of unclear clinical significance. Today, I discussed his overall condition with his 2 daughters at bedside. I told him and the patient needs further workup including a lumbar puncture and further neurology evaluation to rule out any underlying encephalitis or other possible causes of his current medical condition. Given the limited resources in this hospital patient will be transferred to [facility] for further evaluation and possibly more diagnostic tests. I would discuss the patient's condition with the accepting physician. Patient Condition at Discharge: Poor Plan - Discharge Summary New Discharge Prescriptions: No Action Cholecalciferol [Vitamin D3] 2,000 unit PO DAILY Metoprolol Tartrate [Lopressor] 50 mg PO BID #180 tab predniSONE 5 mg PO BID Furosemide [Lasix] 40 mg PO DAILY Ferrous Sulfate [Iron (65 MG Elemental)] 325 mg PO DAILY Potassium Chloride [Klor-Con 20] 20 meq PO DAILY Rivaroxaban [Xarelto] 20 mg PO W/SUPPER Nitroglycerin Sl Tabs [Nitrostat] 0.4 mg SUBLINGUAL Q5M PRN PRN Reason: Chest Pain Lupron Injection 1 dose INJ Q180D Denosumab [Prolia] 1 dose INJ Q180D Polyethylene Glycol 3350 [Miralax] 17 gm PO DAILY Lisinopril [Zestril] 10 mg PO DAILY Isosorbide Mononitrate ER [Imdur] 15 mg PO DAILY Calcium Carbonate [Calcium] 600 mg PO DAILY Abiraterone Acetate [Zytiga] 1,000 mg PO DAILY Discharge Medication List Cholecalciferol [Vitamin D3] 2,000 unit PO DAILY 04/16/16 [History] Metoprolol Tartrate [Lopressor] 50 mg PO BID #180 tab 04/20/16 [Rx] Ferrous Sulfate [Iron (65 MG Elemental)] 325 mg PO DAILY 05/14/17 [History] Furosemide [Lasix] 40 mg PO DAILY 05/14/17 [History] Potassium Chloride [Klor-Con 20] 20 meq PO DAILY 05/14/17 [History] Rivaroxaban [Xarelto] 20 mg PO W/SUPPER 05/14/17 [History] predniSONE 5 mg PO BID 05/14/17 [History] Abiraterone Acetate [Zytiga] 1,000 mg PO DAILY 07/17/17 [History] Calcium Carbonate [Calcium] 600 mg PO DAILY 07/17/17 [History] Denosumab [Prolia] 1 dose INJ Q180D 07/17/17 [History] Isosorbide Mononitrate ER [Imdur] 15 mg PO DAILY 07/17/17 [History] Lisinopril [Zestril] 10 mg PO DAILY 07/17/17 [History] Lupron Injection 1 dose INJ Q180D 07/17/17 [History] Nitroglycerin Sl Tabs [Nitrostat] 0.4 mg SUBLINGUAL Q5M PRN 07/17/17 [History] Polyethylene Glycol 3350 [Miralax] 17 gm PO DAILY 07/17/17 [History] Follow up Appointment(s)/Referral(s): Annamaria Jimenez MD [Primary Care Provider] - 1-2 days
[2017-07-20] MEDS: METOPROLOL TARTRATE 50 MG TAB PO SCH (12:22)
[2017-07-20] MEDS: POTASSIUM CHLORIDE ER 20 MEQ TAB.ER PO SCH (12:22)
[2017-07-20] MEDS: ISOSORBIDE MONONITRATE ER 15 MG TAB PO SCH (12:22)
[2017-07-20] MEDS: FUROSEMIDE 40 MG TAB PO SCH (12:22)
[2017-07-20] MEDS: FERROUS SULFATE 325 MG TAB PO SCH (12:22)
[2017-07-20] MEDS: CHOLECALCIFEROL 1,000 UNIT TAB PO SCH (12:23)
[2017-07-20] MEDS: POLYETHYLENE GLYCOL 3350 17 GM POWD.PACK PO SCH (12:23)
[2017-07-20] MEDS: LISINOPRIL 10 MG TAB PO SCH (12:23)
--- NOTE | 2017-07-20 12:42 | P.PN ---
Progress Note - Text Progress Note Date: 07/20/17 Patient seen this morning for f/u visit. He is laying in his bed, accompanied by a sitter. According to sitter, pt has been combative and disoriented all morning. She stated that patient was picking at the air as if responding to visual hallucinations and also making illogical comments. Eventually Ativan IV x 1 was administered. He appears slightly sedated at this time, but was able to respond to some questioning by this provider. Patient giving illogical answers to questions. When asked about visual hallucinations he stated that he sees an "old grandad" but eyes are closed while stating this. Patient was disoriented to his surroundings and time. I spent an extensive time speaking with patient's and two daughters after seeing the patient. Discussed the possibility of dementia with psychosis vs acute delirium due to encephalopathy. Also, discussed the prognosis of dementia, variable treatment options and placement issues with the family. They reported that patient does seem to have been more lucid yesterday but has had a decline in behavior since last night. Also, stated that he had been on his Zytiga and Prednisone (low dose) for the past 60days so did not feel his current symptoms were related to that. MENTAL STATUS EXAM: Pt is a 76yo male who appears stated age, wearing a hospital gown and laying in bed. Pt has been agitated all morning, according to collateral report; however, calm during exam. Eye contact is poor. Speech is hesitant with low volume and illogical responses. He does not report any thoughts of self harm or harm towards others. Does not appear to be responding to any hallucinations at this time, but has experienced VH this morning. Pt is not oriented to time or place. Unsure if he is oriented to person, but did smile when this provider called his name. Judgment is poor and insight limited. MRI showed no acute abnormalities. No signs of acute infarction. ASSESSMENT: 1. Psychosis Unspecified 3. R/O Delirium secondary to encephalopathy 4. R/O Major Neurocognitive Disorder with Lewy Bodies PLAN: Continue Ativan PRN for acute agitation. According to documentation from treatment team, plan is to transfer patient to [facility] for further neurological work-up, including lumbar puncture. I strongly agree with this plan. Would recommend holding off on antipsychotics and/or dementia medications at this time until more is known about the exact etiology of his symptoms. Consider neurocognitive testing once patient more stable to aide in more specific diagnosis of dementia.
[2017-07-20] MEDS ORDERED: INFLUENZA VACCINE (6 MOS+) 60 MCG/0.5 ML SYRINGE IM ONE (15:00)
== END 2017-07-20 14:13 | disposition short-term general hospital (02) | DRG 948 ==
LOC: EC 19:43 → 4MS4W 23:02
PROVIDERS: ADMIT Internal Medicine; ATTEND Internal Medicine
DX: R41.82 Altered mental status, unspecified (principal); F03.90 Unspecified dementia, unspecified severity, without behavioral disturbance, psychotic disturbance, mood disturbance, and anxiety; C61 Malignant neoplasm of prostate; F23 Brief psychotic disorder; I48.2 Chronic atrial fibrillation; I10 Essential (primary) hypertension; H54.7 Unspecified visual loss; H91.90 Unspecified hearing loss, unspecified ear; M19.91 Primary osteoarthritis, unspecified site; Z79.01 Long term (current) use of anticoagulants; Z79.52 Long term (current) use of systemic steroids; Z79.899 Other long term (current) drug therapy; Z87.891 Personal history of nicotine dependence; Z90.79 Acquired absence of other genital organ(s); Z98.41 Cataract extraction status, right eye
CPT/HCPCS: 36415; 70450; 70553; 71020; 80053; 80061; 81001; 82140; 82550; 82553; 82803; 83605; 83735; 84443; 84484; 85025; 85610; 85730; 86850; 86900; 86901; 93005; 93880; 96361; 96365; 99285